=== PATIENT | female | born 1955 | race Caucasian/White ===

== ENCOUNTER → 2016-06-26 | Outpatient (CLI) | payer OTHER ==
[~2016-06-26] MED LIST: ASCO100C2 PO; ASCO500C43 PO; ASPI81TA28 PO; ATOR-24 PO; ATOR-54 PO; CHOL100027 PO; HYDR-3419 PO; MULT-506 PO; OMEGCAP2 PO; OMEP20CA9 PO
[2016-06-26 12:43] LABS: ESTIMATED AVERAGE GLUCOSE 123 mg/dl; HA1C FLAG Normal (Normal)
[2016-06-26 13:04] LABS: ALT/SGPT 38 U/L (12-78); BLOOD UREA NITROGEN 12 mg/dl (7-18); BUN/CREATININE RATIO 13.8 (10-20); CALCIUM 9.2 mg/dl (8.5-10.1); CARBON DIOXIDE 25 mmol/L (21-32); CHLORIDE 106 mmol/L (98-107); CHOLESTEROL 196 mg/dl (0-200); CREATININE 0.87 mg/dl (0.60-1.20); GLUCOSE 109 mg/dl (70-99); SODIUM 140 mmol/L (136-145); TRIGLYCERIDES 146 mg/dl (0-150); VERY LOW DENSITY LIPOPROT CALC 29 mg/dl
[2016-06-26 13:09] LABS: ALKALINE PHOSPHATASE 159 U/L (45-117); AST/SGOT 31 U/L (15-37); CHOLESTEROL/HDL RATIO 3.2; HDL CHOLESTEROL 62 mg/dl; LDL CHOLESTEROL CALCULATED 105 mg/dl
[2016-06-26 19:39] LABS: RATIO 12.4 mcg/mg (0-30.0)
== END | disposition home or self-care (01) ==
LOC: C.LABPVFM 09:04
PROVIDERS: ATTEND Family Medicine
DX: E78.5 Hyperlipidemia, unspecified (principal); R73.01 Impaired fasting glucose; R74.8 Abnormal levels of other serum enzymes; K21.9 Gastro-esophageal reflux disease without esophagitis

== ENCOUNTER → 2016-06-26 | Outpatient (CLI) | payer OTHER | END | disposition home or self-care (01) | LOC: C.PAPS 14:19 | PROVIDERS: ATTEND Nurse Practitioner | DX: Z01.419 Encounter for gynecological examination (general) (routine) without abnormal findings (principal) ==

== ENCOUNTER → 2016-07-05 | Outpatient (CLI) | payer OTHER ==
[2016-07-05 12:58] LABS: BASO % 0.2 %; BASO ABS # 0.01 K/uL (0-0.2); COMPLETE YES; EOS % 1.1 %; HEMATOCRIT 37.6 % (37-47); IG% 0.2 %; LYMPH % 37.8 %; MEAN CELL VOLUME 87.2 fL (80-100); MEAN CORPUSCULAR HEMOGLOBIN 29.7 pg (25-34); MONO % 8.5 %; NEUT % 52.2 %; PLATELET COUNT 117 K/uL (130-400); RED BLOOD COUNT 4.31 M/uL (4.2-5.4); WHITE BLOOD COUNT 6.09 K/uL (4.8-10.8)
[2016-07-05 13:32] LABS: URINE APPEARANCE CLEAR (CLEAR); URINE BILIRUBIN NEG (NEG); URINE COLOR YELLOW; URINE EPITHELIAL CELL AUTO 0-5 /lpf (0-5); URINE NITRITE NEG (NEG); URINE PH 6.5 (4.5-7.5); URINE SPECIFIC GRAVITY 1.005 (1.000-1.030); UROBILINOGEN NEG (NEG)
[2016-07-05 13:39] LABS: ALT/SGPT 39 U/L (12-78); AST/SGOT 28 U/L (15-37); BLOOD UREA NITROGEN 10 mg/dl (7-18); BUN/CREATININE RATIO 12.8 (10-20); CALCIUM 9.5 mg/dl (8.5-10.1); CARBON DIOXIDE 27 mmol/L (21-32); CHLORIDE 105 mmol/L (98-107); GLUCOSE 92 mg/dl (70-99); POTASSIUM 3.9 mmol/L (3.5-5.1); SODIUM 141 mmol/L (136-145)
[2016-07-05 13:41] LABS: ALKALINE PHOSPHATASE 170 U/L (45-117)
[2016-07-05 13:46] LABS: MANUAL MICROSCOPIC REQUIRED? NO; REVIEW REQ? NO
== END | disposition home or self-care (01) ==
LOC: C.LABPVFM 10:45
PROVIDERS: ATTEND Nurse Practitioner Family
DX: R39.9 Unspecified symptoms and signs involving the genitourinary system (principal); R10.11 Right upper quadrant pain

== ENCOUNTER 2016-07-07 07:27 | Emergency (ER) | payer OTHER ==
[~2016-07-07] VITALS: Ht 144.8 cm; Wt 57.8 kg
[~2016-07-07 07:27] MED LIST changes: -ASCO500C43 PO; -ATOR-54 PO; -HYDR-3419 PO
[2016-07-07 07:29] VITALS: TEMP 36.4; Ht 144.8 cm; Wt 57.8 kg
--- NOTE | 2016-07-07 07:57 | EMERGENCY ROOM VISIT NOTE ---
History First contact with patient: 07:39 Chief Complaint: BACK PAIN Stated Complaint: BACK PAINS,SIDE PAINS,STOMACH PAINS,BLOATING History of Present Illness The patient is a 61 year old female who presents to the Emergency Room with complaints of abdominal and back pain, bloating, and loose stools since Thursday. She reports she was feeling well up until Thursday morning, when she woke up and had a central vague abdominal discomfort with left posterior CVA tenderness. She reports this lasted throughout the day and was associated with loose stool as well. She was not on antibiotics prior to this. She tried taking Ibuprofen which did not affect the pain. She had the pain afternoon and also Thursday AM again, both times lasting a few hours with the same characteristics. She did not vomit at any point but since today has felt nauseated and lightheaded, so when she had the pain again this morning she decided to come in for evaluation. She saw her PCP on Thursday who did some labwork and a urinalysis but neither were remarkable. She reports she was concerned about her symptoms being related to her gallbladder, pancreatitis, or ovarian cancer. She currently reports pain in the suprapubic region and upper abdomen, and that the pain in the left CVA region has resolved. Review of Systems See HPI for pertinent positives & negatives. A total of 10 systems reviewed and were otherwise negative. Past Medical/Surgical History Pre-diabetes Family History Cancer Heart disease Hypertension Two sisters had breast cancer, one of which also recently had her gallbladder removed. Mother in old age. Father healthy. Social History Smoking Status: Never Smoker Alcohol Use: none Drug Use: none Marital Status: Housing Status: lives with family Occupation Status: employed Current/Historical Medications Scheduled Ascorbic Acid (Vitamin C 500 mg), 500 MG PO DAILY Aspirin (Aspirin Ec), 81 MG PO DAILY Atorvastatin (Lipitor), 20 MG PO DAILY Cholecalciferol (Vitamin D 1000 Unit), 1,000 INTER.UNIT PO DAILY Multivitamin (Multivitamin), 1 TAB PO DAILY [place]-3 Fatty Acids (Fish Oil), 1 CAP PO DAILY Scheduled PRN Hydrocodon/Acetaminophen 5MG/300MG (Vicodin (5MG/300MG)), 1 TAB PO Q6H PRN for Pain Omeprazole (Prilosec), 20 MG PO BID PRN for Heartburn Allergies Coded Allergies: No Known Allergies (Unverified , 2/27/17) Physical Exam Vital Signs Date Time Temp Pulse Resp B/P Pulse Ox O2 Delivery O2 Flow Rate FiO2 07/07/16 09:30 79 18 131/69 94 Room Air 07/07/16 07:29 36.4 113 18 162/93 98 Room Air Physical Exam GENERAL: Awake, alert, well-appearing, anxious appearing. HENT: Normocephalic, atraumatic. Oropharynx unremarkable. EYES: Normal conjunctiva. Sclera non-icteric. NECK: Supple. No nuchal rigidity. FROM. No JVD. RESPIRATORY: Clear to auscultation. CARDIAC: Regular rate, normal rhythm. Extremities warm and well perfused. Pulses equal. ABDOMEN: Soft, non-distended. Mild tenderness to superficial palpation to upper right quadrant and suprapubic region. No rebound or guarding. No masses. RECTAL: Deferred. MUSCULOSKELETAL: Chest examination reveals no tenderness. The back is symmetrical on inspection without obvious abnormality. There is no CVA tenderness to palpation. No joint edema. LOWER EXTREMITIES: Calves are equal size bilaterally and non-tender. No edema. No discoloration. NEURO: Normal sensorium. No sensory or motor deficits noted. SKIN: No rash or jaundice noted. Medical Decision & Procedures Laboratory Results 07/07/16 07:40 Red Blood Count 4.61, Mean Corpuscular Volume 87.0, Mean Corpuscular Hemoglobin 30.4, Mean Corpuscular Hemoglobin Concent 34.9, Mean Platelet Volume 9.6 07/07/16 07:40 Test 07/07/16 07:35 07/07/16 07:40 Urine Color YELLOW Urine Appearance CLEAR (CLEAR) Urine pH 7.0 (4.5-7.5) Urine Specific [place] 1.000 (1.000-1.030) Urine Protein NEG (NEG) Urine Glucose (UA) NEG (NEG) Urine Ketones NEG (NEG) Urine Occult Blood 2+ (NEG) Urine Nitrite NEG (NEG) Urine Bilirubin NEG (NEG) Urine Urobilinogen NEG (NEG) Urine Leukocyte Esterase NEG (NEG) Urine WBC (Auto) 0 /hpf (0-5) Urine RBC (Auto) 0-4 /hpf (0-4) Urine Hyaline Casts (Auto) 0 /lpf (0-5) Urine Epithelial Cells (Auto) 0-5 /lpf (0-5) Urine Bacteria (Auto) NEG (NEG) White Blood Count 6.37 K/uL (4.8-10.8) Red Blood Count 4.61 M/uL (4.2-5.4) Hemoglobin 14.0 g/dL (12.0-16.0) Hematocrit 40.1 % (37-47) Mean Corpuscular Volume 87.0 fL (80-100) Mean Corpuscular Hemoglobin 30.4 pg (25-34) Mean Corpuscular Hemoglobin Concent 34.9 g/dl (32-36) Platelet Count 234 K/uL (130-400) Mean Platelet Volume 9.6 fL (7.4-10.4) RDW Standard Deviation 44.8 fL (36.4-46.3) RDW Coefficient of Variation 14.2 % (11.5-14.5) Neutrophils % (Manual) 57.7 % Lymphocytes % (Manual) 20.7 % Variant Lymphocytes % (manual) 12.6 % Monocytes % (Manual) 9.0 % Neutrophils # (Manual) 3.68 K/uL (1.4-6.5) Total Absolute Neutrophils 3.68 K/uL (1.4-6.5) Lymphocytes # (Manual) 1.32 K/uL (1.2-3.4) Absolute Variant Lymphocytes 0.80 K/uL Total Absolute Lymphocytes 2.12 K/uL (1.2-3.4) Monocytes # (Manual) 0.57 K/uL (0.11-0.59) Ovalocytes 1+ Anion Gap 7.0 mmol/L (3-11) Est Creatinine Clear Calc Drug Dose 56.7 ml/min Estimated GFR () 96.4 Estimated GFR (Non- 83.2 BUN/Creatinine Ratio 12.4 (10-20) Calcium Level 9.5 mg/dl (8.5-10.1) Total Bilirubin 0.8 mg/dl (0.2-1) Aspartate Amino Transf (AST/SGOT) 36 U/L (15-37) Alanine Aminotransferase (ALT/SGPT) 47 U/L (12-78) Alkaline Phosphatase 198 U/L (45-117) Total Protein 8.5 gm/dl (6.4-8.2) Albumin 4.2 gm/dl (3.4-5.0) Globulin 4.3 gm/dl (2.5-4.0) Albumin/Globulin Ratio 1.0 (0.9-2) Lipase 176 U/L (73-393) Procedure CT ABDOMEN PELVIS CLINICAL HISTORY: Left-sided flank pain. Bloating. COMPARISON STUDY: 03/30/2014 TECHNIQUE: CT scan of the abdomen and pelvis was performed from the lung bases to the proximal femurs. Images are reviewed in the axial, sagittal, and coronal planes. IV contrast was not administered for this examination. CT DOSE: 493.09 mGy.cm FINDINGS: Lower chest: The heart is normal in size and configuration, without pericardial effusion. The lung bases and pleural spaces are clear. Liver: The unenhanced liver is normal in size, contour, and attenuation. There is no intrahepatic biliary ductal dilatation. Gallbladder: Unremarkable. Spleen: Normal in size and attenuation. Pancreas: Unremarkable. Adrenal glands: Unremarkable. Kidneys: The unenhanced kidneys are normal in size without hydronephrosis. There is no contour deforming renal mass lesion. No renal calculi are identified. No ureteral or bladder calculi are visualized. Bowel: There are no transition zones to indicate bowel obstruction. The appendix appears normal. There is no evidence of acute diverticulitis. Peritoneum: There is no intraperitoneal free air or abdominal ascites. Vasculature: The abdominal aorta is normal in course and caliber. Adenopathy: None. Pelvic viscera: The bladder, and pelvic viscera are unremarkable. Skeletal structures: No destructive osseous lesions are seen. Since the prior study, the patient has developed superior endplate compression fractures at the T11 and L1 levels. IMPRESSION: 1. No renal, ureteral, or bladder calculi identified 2. No evidence of bowel obstruction. No evidence of free air 3. Normal appendix. No evidence of acute diverticulitis 4. No abnormal adnexal masses identified 5. Interval development of superior endplate compression fractures at the T11 and L1 levels. ED Course 7:50: I evaluated the patient in room B6. She had a complete history and physical examination performed. 7:57: I ordered a CBC, CMP, Lipase level, Urinalysis with microscopy/culture. 7:58: I reviewed her labwork from her PCP on 07/05. She had a urinalysis that showed 1-30 RBCs, and culture is still pending. Her CBC was unremarkable and CMP unremarkable apart from a Alk Phos of 170. I discussed this with Dr Vargas. We ordered a CT of the abdomen without contrast to evaluate for stone / pelvis pathology. I informed the patient of this as well. 9:20: I reviewed the patients CT scan results with her, and her unremarkable lab work. 9:31: I checked the patient on the [place] PDMP - She last had a script for narcotics 1 year ago. She is not at risk for drug abuse. 9:50: The patient was deemed stable for discharge. She was prescribed [place] for pain and advised to follow up with her PCP. 10:00: She was discharged in good condition. Medical Decision 61 yo female with abdominal pain, nausea, and hematuria - differential includes : renal calculus, pancreatitis, cholecystitis, ovarian pathology, constipation, or dehydration. She had an IV placed and labs drawn. She initially reported feeling nauseated so I ordered Zofran 4mg, then she did not feel nauseated anymore, so this was cancelled. She had a CT completed as above. Her labs were unremarkable, though her ALT had increased from prior. She did not have a kidney stone visualized on CT. She did have occult blood on her urine microscopy which was also unremarkable. She reported her pain had improved but she did not feel like she could cope without any medications at home. She was reviewed in the PDMP and deemed low risk for abuse. She was instructed to take the pain medications as needed but then follow up with her PCP if symptoms did not improve. She was discharged home in good condition. [place] Drug Monitoring Program Search Results: patient reviewed within database, no issues identified, see additional documentation Impression Primary Impression: Abdominal pain Departure Information Condition GOOD Prescriptions Hydrocodon/Acetaminophen 5MG/300MG (VICODIN (5MG/300MG)) 1 Tab Tab 1 TAB PO Q6H Y for Pain, #15 TAB Prov: Leslye Pollock MD 07/07/16 Referrals Abby Jasso, C.R.N.P (PCP) Patient Instructions My [facility] Resident Tracking Resident Involvement: Resident Care Provided Care Provided: Adult ED
[2016-07-07 08:03] LABS: HEMATOCRIT 40.1 % (37-47); MEAN CORPUSCULAR HEMOGLOBIN 30.4 pg (25-34); MEAN CORPUSCULAR HGB CONC 34.9 g/dl (32-36); MEAN PLATELET VOLUME 9.6 fL (7.4-10.4); PLATELET COUNT 234 K/uL (130-400); RED BLOOD COUNT 4.61 M/uL (4.2-5.4); WHITE BLOOD COUNT 6.37 K/uL (4.8-10.8)
[2016-07-07] MEDS ORDERED: ONDANSETRON INJ 2 MG/ML 2 ML VIAL IV STA (08:03)
[2016-07-07 08:13] LABS: URINE APPEARANCE CLEAR (CLEAR); URINE BILIRUBIN NEG (NEG); URINE COLOR YELLOW; URINE EPITHELIAL CELL AUTO 0-5 /lpf (0-5); URINE NITRITE NEG (NEG); UROBILINOGEN NEG (NEG); ZZUR CULT IF INDIC CLEAN CATCH NO
[2016-07-07 08:18] LABS: BUN/CREATININE RATIO 12.4 (10-20); CALCIUM 9.5 mg/dl (8.5-10.1); CREATININE 0.78 mg/dl (0.60-1.20); POTASSIUM 3.6 mmol/L (3.5-5.1)
[2016-07-07 08:23] LABS: MANUAL MICROSCOPIC REQUIRED? NO; REVIEW REQ? NO
[2016-07-07] MEDS ORDERED: ASCO500C43 PO (08:28)
[2016-07-07] MEDS ORDERED: ATOR-54 PO (08:28)
--- NOTE | 2016-07-07 08:44 | DIAGNOSTIC IMAGING REPORT ---
CT SCAN OF THE ABDOMEN AND PELVIS WITHOUT CONTRAST CLINICAL HISTORY: Left-sided flank pain. Bloating. COMPARISON STUDY: 03/30/2014 TECHNIQUE: CT scan of the abdomen and pelvis was performed from the lung bases to the proximal femurs. Images are reviewed in the axial, sagittal, and coronal planes. IV contrast was not administered for this examination. CT DOSE: 493.09 mGy.cm FINDINGS: Lower chest: The heart is normal in size and configuration, without pericardial effusion. The lung bases and pleural spaces are clear. Liver: The unenhanced liver is normal in size, contour, and attenuation. There is no intrahepatic biliary ductal dilatation. Gallbladder: Unremarkable. Spleen: Normal in size and attenuation. Pancreas: Unremarkable. Adrenal glands: Unremarkable. Kidneys: The unenhanced kidneys are normal in size without hydronephrosis. There is no contour deforming renal mass lesion. No renal calculi are identified. No ureteral or bladder calculi are visualized. Bowel: There are no transition zones to indicate bowel obstruction. The appendix appears normal. There is no evidence of acute diverticulitis. Peritoneum: There is no intraperitoneal free air or abdominal ascites. Vasculature: The abdominal aorta is normal in course and caliber. Adenopathy: None. Pelvic viscera: The bladder, and pelvic viscera are unremarkable. Skeletal structures: No destructive osseous lesions are seen. Since the prior study, the patient has developed superior endplate compression fractures at the T11 and L1 levels. IMPRESSION: 1. No renal, ureteral, or bladder calculi identified 2. No evidence of bowel obstruction. No evidence of free air 3. Normal appendix. No evidence of acute diverticulitis 4. No abnormal adnexal masses identified 5. Interval development of superior endplate compression fractures at the T11 and L1 levels. Electronically signed by: Carlos Nagy M.D. 07/07/2016 8:43 AM Dictated Date/Time: 07/07/2016 8:27 AM
[2016-07-07 09:08] LABS: COMPLETE YES; LYMPH ABS # 1.32 K/uL (1.2-3.4); LYMPHOCYTE % 20.7 %; NEUTROPHILS % 57.7 %; OVALOCYTES 1+; VARIANT LYMPHOCYTE % 12.6 %
[2016-07-07 09:30] VITALS: BP 131/69; PULSE 79; O2SAT 94
[2016-07-07] MEDS ORDERED: HYDR-3419 PO (09:53)
--- NOTE | 2016-07-09 15:20 | EMERGENCY ROOM VISIT NOTE ---
ED Visit Note First contact with patient: 07:39 Resident Physician Supervision Note: I interviewed and examined the patient. Discussed with Dr. Pollock and agree with findings and plan as documented in the note. Any exceptions or clarifications are listed here: [None] Diagnosis: flank pain, resolved. Central abdominal pain Documented By: Rosalba Vargas
== END 2016-07-07 10:02 | disposition home or self-care (01) ==
LOC: C.EDB 07:29
DX: R10.9 Unspecified abdominal pain (principal); R31.9 Hematuria, unspecified; R42 Dizziness and giddiness; Z82.49 Family history of ischemic heart disease and other diseases of the circulatory system; Z80.3 Family history of malignant neoplasm of breast; Z79.82 Long term (current) use of aspirin

== ENCOUNTER → 2016-07-29 | Outpatient (CLI) | payer OTHER ==
[~2016-07-29] MED LIST changes: -ASCO100C2 PO; +ASCO500C43 PO; -ATOR-24 PO; +ATOR-54 PO; +HYDR-3419 PO
== END | disposition home or self-care (01) ==
LOC: C.MAMM 15:21
PROVIDERS: ATTEND Nurse Practitioner
DX: S32.009A Unspecified fracture of unspecified lumbar vertebra, initial encounter for closed fracture (principal); X58.XXXA Exposure to other specified factors, initial encounter; M85.88 Other specified disorders of bone density and structure, other site; M85.851 Other specified disorders of bone density and structure, right thigh; M85.852 Other specified disorders of bone density and structure, left thigh

== ENCOUNTER → 2016-07-31 | Outpatient (CLI) | payer OTHER ==
[2016-07-31 17:33] LABS: HEMATOCRIT 37.1 % (37-47); MEAN CELL VOLUME 85.7 fL (80-100); MEAN CORPUSCULAR HEMOGLOBIN 28.6 pg (25-34); MEAN CORPUSCULAR HGB CONC 33.4 g/dl (32-36); MEAN PLATELET VOLUME 11.7 fL (7.4-10.4); PLATELET COUNT 102 K/uL (130-400); RED BLOOD COUNT 4.33 M/uL (4.2-5.4); WHITE BLOOD COUNT 4.46 K/uL (4.8-10.8)
[2016-07-31 17:46] LABS: ALT/SGPT 50 U/L (12-78); BLOOD UREA NITROGEN 12 mg/dl (7-18); BUN/CREATININE RATIO 15.3 (10-20); CARBON DIOXIDE 26 mmol/L (21-32); CHLORIDE 108 mmol/L (98-107); CREATININE 0.78 mg/dl (0.60-1.20); GLUCOSE 91 mg/dl (70-99); POTASSIUM 3.8 mmol/L (3.5-5.1); SODIUM 141 mmol/L (136-145)
[2016-07-31 17:49] LABS: ALKALINE PHOSPHATASE 243 U/L (45-117); AST/SGOT 33 U/L (15-37)
[2016-07-31 18:33] LABS: BASO % 0.4 %; BASO ABS # 0.02 K/uL (0-0.2); COMPLETE YES; EOS % 2.2 %; LYMPH % 56.1 %; MONO % 9.4 %; NEUT % 31.9 %
[2016-08-04 22:19] LABS: ALBUMIN 4.3 G/DL (3.8-4.8); GAMMA GLOBULIN 1.6 G/DL (0.8-1.7); TOTAL PROTEIN 7.3 G/DL (6.2-8.3)
== END | disposition home or self-care (01) ==
LOC: C.LABPVFM 13:53
PROVIDERS: ATTEND Nurse Practitioner
DX: M81.0 Age-related osteoporosis without current pathological fracture (principal); D69.6 Thrombocytopenia, unspecified; R74.8 Abnormal levels of other serum enzymes; S32.009A Unspecified fracture of unspecified lumbar vertebra, initial encounter for closed fracture; X58.XXXA Exposure to other specified factors, initial encounter

== ENCOUNTER → 2016-08-20 | Outpatient (CLI) | payer OTHER ==
--- NOTE | 2016-08-20 14:12 | DIAGNOSTIC IMAGING REPORT ---
KUB HISTORY: ABDOMINAL DISCOMFORT COMPARISON: Abdomen and pelvis CT 07/07/2016. FINDINGS: The bowel gas pattern is unremarkable. There are no dilated loops of small bowel to suggest an obstruction. No renal calculi. No ureteral calculi. Calcifications in the deep pelvis likely represent phleboliths. No pneumoperitoneum or pneumatosis. Stable mild old superior endplate compression deformity at L1. IMPRESSION: Unremarkable bowel gas pattern. No evidence for bowel obstruction. Electronically signed by: Jose Payne M.D. 08/20/2016 2:10 PM Dictated Date/Time: 08/20/2016 2:09 PM
== END | disposition home or self-care (01) ==
LOC: C.LABPVFM 13:14
PROVIDERS: ATTEND Family Medicine
DX: R10.9 Unspecified abdominal pain (principal)

== ENCOUNTER → 2016-08-21 | Outpatient (CLI) | payer OTHER ==
[2016-08-24 13:07] LABS: O&P SOURCE OTHER
== END | disposition home or self-care (01) ==
LOC: C.LABPVFM 12:26
PROVIDERS: ATTEND Family Medicine
DX: R19.7 Diarrhea, unspecified (principal)

== ENCOUNTER → 2016-09-08 | Outpatient (CLI) | payer OTHER ==
--- NOTE | 2016-09-08 11:52 | DIAGNOSTIC IMAGING REPORT ---
THORACIC SPINE 3 VIEWS ROUTINE CLINICAL HISTORY: Low back pain COMPARISON STUDY: CT scan the abdomen pelvis dated 07/07/2016 FINDINGS: The bones are osteopenic. There is a superior endplate L1 compression deformity. Superior endplate compression deformities are also visualized at T12, T11 and T5 levels. There is a mild S-shaped scoliosis. No destructive lesions are visualized on conventional radiographic imaging. The paraspinal line is not significantly displaced. IMPRESSION: Osteopenia. T5, T11, T12, and L1 superior endplate compression fractures. The T12 deformity is new, and the L1 deformity is progressive when compared with a prior CT scan of the abdomen pelvis dated 07/07/2016 Electronically signed by: Carlos Nagy M.D. 09/08/2016 11:51 AM Dictated Date/Time: 09/08/2016 11:48 AM
== END | disposition home or self-care (01) ==
LOC: C.RAD1850 11:06
PROVIDERS: ATTEND Internal Medicine Endocrinology, Diabetes & Metabolism
DX: M54.5 Low back pain (principal)

== ENCOUNTER → 2016-11-06 | Outpatient (CLI) | payer OTHER ==
[2016-11-06 17:46] LABS: BASO % 0.4 %; BASO ABS # 0.02 K/uL (0-0.2); COMPLETE YES; EOS % 1.8 %; HEMATOCRIT 37.9 % (37-47); IG% 0.2 %; LYMPH % 49.4 %; LYMPH ABS # 2.54 K/uL (1.2-3.4); MEAN CELL VOLUME 87.5 fL (80-100); MEAN CORPUSCULAR HEMOGLOBIN 29.3 pg (25-34); MEAN CORPUSCULAR HGB CONC 33.5 g/dl (32-36); MONO % 9.1 %; NEUT % 39.1 %; PLATELET COUNT 130 K/uL (130-400); RED BLOOD COUNT 4.33 M/uL (4.2-5.4); WHITE BLOOD COUNT 5.14 K/uL (4.8-10.8)
[2016-11-06 18:12] LABS: ALT/SGPT 44 U/L (12-78); BLOOD UREA NITROGEN 12 mg/dl (7-18); BUN/CREATININE RATIO 13.1 (10-20); CALCIUM 9.3 mg/dl (8.5-10.1); CARBON DIOXIDE 25 mmol/L (21-32); CHLORIDE 108 mmol/L (98-107); CREATININE 0.94 mg/dl (0.60-1.20); GLUCOSE 92 mg/dl (70-99); POTASSIUM 4.2 mmol/L (3.5-5.1); SODIUM 140 mmol/L (136-145)
[2016-11-06 18:15] LABS: ALB/GLOB RATIO 1.1 (0.9-2); ALKALINE PHOSPHATASE 185 U/L (45-117); AST/SGOT 36 U/L (15-37)
[2016-11-07 06:21] LABS: ESTIMATED AVERAGE GLUCOSE 128 mg/dl; HA1C FLAG Normal (Normal)
== END | disposition home or self-care (01) ==
LOC: C.LABPVFM 13:24
PROVIDERS: ATTEND Family Medicine
DX: D69.6 Thrombocytopenia, unspecified (principal); E11.9 Type 2 diabetes mellitus without complications; R74.8 Abnormal levels of other serum enzymes

== ENCOUNTER → 2016-12-22 | Outpatient (CLI) | payer OTHER ==
--- NOTE | 2016-12-22 10:10 | DIAGNOSTIC IMAGING REPORT ---
ABDOMEN LIMITED (US) HISTORY: Abnormal liver function tests Liver/spleen, elevated LFT. COMPARISON: 06/21/2015 FINDINGS: Pancreas: The pancreas demonstrates a normal echotexture. Liver: Fatty replaced Gallbladder: No gallbladder wall thickening. No gallstones. CBD: 4.5 mm Right kidney: No hydronephrosis. Spleen: Normal IMPRESSION: Fatty infiltration of liver. Otherwise negative study. No change from the prior exam. The above report was generated using voice recognition software. It may contain grammatical, syntax or spelling errors. Electronically signed by: David Dorman M.D. 12/22/2016 10:08 AM Dictated Date/Time: 12/22/2016 10:07 AM
== END | disposition home or self-care (01) ==
LOC: C.ULTR 09:00
PROVIDERS: ATTEND Internal Medicine Hematology & Oncology
DX: D69.6 Thrombocytopenia, unspecified (principal); R79.89 Other specified abnormal findings of blood chemistry

== ENCOUNTER → 2017-02-12 | Outpatient (CLI) | payer OTHER ==
[~2017-02-12] MED LIST changes: -HYDR-3419 PO
[2017-02-12 17:59] LABS: ALT/SGPT 53 U/L (12-78); BLOOD UREA NITROGEN 9 mg/dl (7-18); BUN/CREATININE RATIO 11.3 (10-20); CALCIUM 9.5 mg/dl (8.5-10.1); CARBON DIOXIDE 27 mmol/L (21-32); CHLORIDE 107 mmol/L (98-107); CREATININE 0.77 mg/dl (0.60-1.20); GLUCOSE 98 mg/dl (70-99); POTASSIUM 4.1 mmol/L (3.5-5.1); SODIUM 140 mmol/L (136-145)
[2017-02-12 18:10] LABS: ALB/GLOB RATIO 0.9 (0.9-2); ALKALINE PHOSPHATASE 222 U/L (45-117); AST/SGOT 43 U/L (15-37); THYROID STIMULATING HORMONE 0.779 uIu/ml (0.300-4.500)
== END | disposition home or self-care (01) ==
LOC: C.LABPVFM 13:30
PROVIDERS: ATTEND Nurse Practitioner
DX: E11.9 Type 2 diabetes mellitus without complications (principal); R74.8 Abnormal levels of other serum enzymes; R63.4 Abnormal weight loss

== ENCOUNTER → 2017-04-09 | Outpatient (CLI) | payer OTHER ==
--- NOTE | 2017-04-09 14:35 | MAMMOGRAPHY REPORT ---
BILATERAL DIGITAL SCREENING MAMMOGRAM TOMOSYNTHESIS WITH CAD: 04/09/2017 CLINICAL HISTORY: Routine screening. Patient has no complaints. TECHNIQUE: Breast tomosynthesis in addition to standard 2D mammography was performed. Current study was also evaluated with a Computer Aided Detection (CAD) system. COMPARISON: Comparison is made to exams dated: 03/27/2016 mammogram, 03/20/2015 mammogram, 4 mammogram, 11/10/2013 ultrasound, 11/10/2013 mammogram, and 02/22/2013 mammogram - [facility]. BREAST COMPOSITION: The tissue of both breasts is extremely dense, which lowers the sensitivity of m ammography. FINDINGS: No suspicious masses, calcifications, or areas of architectural distortion are noted in ei ther breast. There has been no significant interval change compared to prior exams. IMPRESSION: ACR BI-RADS CATEGORY 1: NEGATIVE There is no mammographic evidence of malignancy. A 1 year screening mammogram is recommended. The pa tient will receive written notification of the results. Approximately 10% of breast cancers are not detected with mammography. A negative mammographic report should not delay biopsy if a clinically suggestive mass is present. Kathryn Valenzuela M.D. /:04/09/2017 09:39:33 Yard Brakeman: Apolonia JARAMILLO(Bree)(Doroteo), [facility] letter sent: Normal 1/2 BI-RADS Code: ACR BI-RADS Category 1: Negative
== END | disposition home or self-care (01) ==
LOC: C.MAMM 08:32
PROVIDERS: ATTEND Family Medicine
DX: Z12.31 Encounter for screening mammogram for malignant neoplasm of breast (principal)

== ENCOUNTER → 2017-09-03 | Outpatient (CLI) | payer OTHER ==
[2017-09-03 13:33] LABS: HEMATOCRIT 37.8 % (37-47); MEAN CELL VOLUME 86.1 fL (80-100); MEAN CORPUSCULAR HEMOGLOBIN 29.6 pg (25-34); MEAN CORPUSCULAR HGB CONC 34.4 g/dl (32-36); RED CELL DISTRIBUTION WIDTH CV 13.8 % (11.5-14.5); RED CELL DISTRIBUTION WIDTH SD 43.5 fL (36.4-46.3); WHITE BLOOD COUNT 3.93 K/uL (4.8-10.8)
[2017-09-03 13:35] LABS: BASO % 0.8 %; BASO ABS # 0.03 K/uL (0-0.2); EOS % 1.8 %; EOS ABS # 0.07 K/uL (0-0.5); IG# 0.03 K/uL (0.00-0.02); LYMPH % 42.7 %; LYMPH ABS # 1.68 K/uL (1.2-3.4); MONO % 9.7 %; MONO ABS # 0.38 K/uL (0.11-0.59); NEUT % 44.2 %; NEUT ABS # 1.74 K/uL (1.4-6.5)
[2017-09-03 13:59] LABS: HEMOGLOBIN A1C 6.1 % (4.5-5.6)
[2017-09-03 14:19] LABS: ALBUMIN 3.9 gm/dl (3.4-5.0); ALT/SGPT 35 U/L (12-78); AST/SGOT 31 U/L (15-37); BLOOD UREA NITROGEN 13 mg/dl (7-18); CALCIUM 8.8 mg/dl (8.5-10.1); CARBON DIOXIDE 27 mmol/L (21-32); CHOLESTEROL 183 mg/dl (0-200); CREATININE 0.87 mg/dl (0.60-1.20); GLUCOSE 106 mg/dl (70-99); SODIUM 141 mmol/L (136-145)
[2017-09-03 14:23] LABS: ALKALINE PHOSPHATASE 127 U/L (45-117); LDL CHOLESTEROL CALCULATED 99 mg/dl; TOTAL PROTEIN 7.7 gm/dl (6.4-8.2)
== END | disposition home or self-care (01) ==
LOC: C.LABPVFM 09:39
PROVIDERS: ATTEND Nurse Practitioner
DX: E11.9 Type 2 diabetes mellitus without complications (principal); R74.8 Abnormal levels of other serum enzymes; K76.0 Fatty (change of) liver, not elsewhere classified; E78.00 Pure hypercholesterolemia, unspecified; M81.0 Age-related osteoporosis without current pathological fracture; D69.6 Thrombocytopenia, unspecified

== ENCOUNTER 2023-11-20 19:35 | Inpatient (IN) ==
--- NOTE | 2023-11-20 19:55 | Emergency Department Note ---
Impression & Plan Closed fracture of right hip requiring operative repair, Fall ED Provider Note Provider: Go Lozano MD DATE OF SERVICE: 11/20/2023 CHIEF COMPLAINT: Fall, right hip pain HISTORY OF PRESENT ILLNESS: Patient is a 68-year-old female history of type 2 diabetes, neuropathy, and hypertension presenting here today after a fall via ambulance. Patient states she was at home and walking and accidentally stepped onto a Food lid that was on the ground and slid back and fell onto the ground. Denies striking her head or losing consciousness. Denies injury to the upper extremities neck back chest or abdomen. Significant pain in the right hip region unable to walk since this occurred. Denies significant pain in the right knee or leg or to the left leg. No history of injury to the right hip in the past. Received some fentanyl for EMS and did vomit due to pain prior to arrival but this has improved. PAST MEDICAL HISTORY: As noted above MEDICATIONS: Reviewed home medication list no anticoagulation reported SOCIAL HISTORY: Former smoker PHYSICAL EXAM: GENERAL: alert and oriented resting on stretcher appears somewhat uncomfortable Head: normocephalic and atraumatic EYES: No injection, discharge or icterus. EOMI. NECK: Trachea midline. Supple. ENT: Mucous membranes pink and moist. LUNGS: Airway patent. No retractions. Breath sounds clear with good air entry bilaterally. HEART: Regular rate and rhythm. No chest wall tenderness ABDOMEN: Soft and non-tender, without guarding or rebound. Stable pelvis. SKIN: Acyanotic, warm, dry, without rashes EXTREMITIES: Without swelling, tenderness or deformity except for pain localized around the right hip with some lateral swelling and deformity. No open wounds appreciable. No significant tenderness of the right knee lower leg or ankle/foot. NEUROLOGICAL: No aphasia. No facial droop or slurred speech. Sensation to gross touch normal. Limited movement of the right hip secondary to pain but other extremities moving well. EK bpm normal sinus rhythm. No PVC or PAC. No acute ST segment elevation or depression with QTc 46. CONTINUOUS CARDIAC MONITORING: was ordered and showed a heart rate of 70s to 90s bpm in normal sinus rhythm GCS 15. Patient's laboratory studies and imaging reviewed. Differential includes Fracture, dislocation, contusion, intra-abdominal, pneumothorax, intrathoracic, intracranial, neurologic, compartment syndrome, rhabdomyolysis, as well as other pathologies. IMPRESSION/MEDICAL DECISION MAKING: Patient hypoxic. Not on her skin coagulants or antiplatelet agents. Pain localized around the right hip with some lateral swelling and slight shortening. Question possible fracture or dislocation. Denies LOC or striking her head and no believe any head or neck imaging at this time. Next criteria negative. No injury notable in the other extremities. No clinical evidence of compartment syndrome noted. Benign abdomen on exam doubt acute intra-abdominal bleeding. Given fentanyl for pain as well as some Zofran here. X-rays obtained of the right hip and pelvis. Blood work without significant leukocytosis or thrombocytopenia with minimal anemia of 11.4. Normal electrolytes. Negative urinalysis. X-ray shows right hip fracture with a little bit of nonacute stress fracture of the femur. Discussed with Dr. Mackey of orthopedics. Neurovascular intact without findings of compartment syndrome. Multiple is of fentanyl, morphine, and IV Tylenol for some pain control. He will plan to fix her tomorrow and patient and family updated at bedside. Hospitalist contacted for admission. DIAGNOSIS: Fall, right hip fracture DISPOSITION: Hospitalist will evaluate Patient was agreeable with this plan. Past Med/Surg History Problem List (Updated 11/20/23 @ 22:03 by Go Lozano M.D.) Fall (Acute) Closed fracture of right hip requiring operative repair (Acute) Exposure to influenza Enlarged lymph nodes in armpit Pain in right axilla Stricture of sigmoid colon Diverticulosis Anemia Insomnia (Chronic) Neuropathic pain of both legs (Chronic) Type 2 diabetes mellitus (Chronic) Osteoporosis (Chronic) Hypertension (Chronic) Anxiety (Chronic) Vertigo (Acute) Dyslipidemia (Chronic) Acid reflux (Acute) Change in bowel habits Chronic diarrhea Medical History Osteoporosis Belching GERD (gastroesophageal reflux disease) DM type 2 (diabetes mellitus, type 2) Anxiety Glaucoma HLD (hyperlipidemia) HTN (hypertension) Dog bite Fatty infiltration of liver Surgical History History of esophagogastroduodenoscopy (EGD) History of colonoscopy History of tubal ligation Family History Sister Cardiac disorder Kidney stones Breast cancer Hx of CABG Sister Diabetes Myocardial infarction Mother Myocardial infarction Father Myocardial infarction Other Coronary heart disease Family history non-contributory No family history of adverse response to anesthesia Denies family history of Ovarian cancer Prostate cancer Colorectal cancer Social History Smoking Status: Former smoker Second Hand Exposure: No; Do You Dip or Chew Tobacco: No; Hx Alcohol Use: No Hx Substance Use: No Preferred Language: Vietnamese Communication Ability: Effective Hearing Ability: Hard of Hearing 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 Beliefs That Will Affect Care: None marital status: Current Living Situation: Spouse current occupational status: employed current occupation: self employeed How many Children do You have: 3 Feels Safe at Home: Yes Childhood Exposure to Second-Hand Smoke: No Diet: regular caffeine: Yes during the past year weight has: remained stable Dental Care, Regularly: No Physical Activity Frequency: Daily Seatbelt Use: always Sunscreen Use: Yes Assistive Devices: Denture - Upper, Denture - Lower and Glasses Allergies Allergies Allergy/AdvReac Type Severity Reaction Status Date / Time lisinopril AdvReac Intermediate Cough Verified 11/20/23 21:00 Home Meds Home Medications Medication Instructions Recorded Confirmed ascorbic acid (vitamin C) 500 mg 500 mg PO QAM 01/04/19 11/20/23 chewable tablet cholecalciferol (vitamin D3) 25 1,000 units PO QAM 01/04/19 11/20/23 mcg (1,000 unit) capsule omega-3 fatty acids 500 mg capsule 500 mg PO QAM 04/08/21 11/20/23 ibfcluvilbdu-Di-ztvj-minerals 27 1 tab PO DAILY 11/20/23 11/20/23 mg-0.4 mg tablet trazodone 50 mg tablet 25 mg PO HS PRN insomnia 11/20/23 11/20/23 Previous Rx's Medication Instructions Recorded blood sugar diagnostic (OneTouch #300 ea 02/22/19 Ultra Blue Test Strip) lancets 33 gauge (OneTouch Delica #300 ea 02/22/19 Lancets) meclizine 25 mg tablet 25 mg PO BID PRN dizziness #20 tabs 07/11/22 losartan 50 mg tablet 50 mg PO DAILY #30 tabs 03/30/23 rosuvastatin 10 mg tablet 10 mg PO DAILY #90 tabs 04/09/23 escitalopram oxalate 10 mg tablet 10 mg PO QAM #90 tabs 06/19/23 denosumab 60 mg/mL subcutaneous 60 mg subcut .COMPLEX #1 mL 11/02/23 syringe (Prolia) metformin 500 mg tablet,extended 500 mg PO QDL #90 tabs 11/03/23 release 24 hr Results & Data (ED) Vital Signs Vital Signs - 24 hr 11/20/23 19:42 11/20/23 22:59 Temperature 36.8 C Temperature Source Oral Pulse Rate 80 Pulse Rate [Finger] 74 Respiratory Rate 20 18 Respiratory Depth Normal Blood Pressure 155/77 H Blood Pressure [Right Arm] 99/76 L Blood Pressure Mean 103 Blood Pressure Mean [Right Arm] 83 Pulse Oximetry 98 91 Oxygen Delivery Method Room Air Sepsis Recent Fever Within 48 Hours No Sepsis New/Unexplained Change in Mental Status No Sepsis Action Taken by Nursing No Action Required Laboratory Data 11/20/23 Unknown 11/20/23 Unknown Lab Results 11/20/23 11/20/23 Range/Units 20:50 Unknown WBC 8.77 (4.8-10.8) K/ul RBC 3.99 L (4.20-5.40) M/uL Hgb 11.4 L (12.0-16.0) g/dl Hct 33.9 L (37.0-47.0) % MCV 85.0 (80.0-100.0) fL MCH 28.6 (25.0-34.0) pg MCHC 33.6 (32.0-36.0) g/dL RDW Std Deviation 44.3 (36.4-46.3) fL RDW Coeff of Faby 14.3 (11.5-14.5) % Plt Count 266 (130-400) K/uL MPV 10.2 (9.4-12.4) fL Immature Gran % (Auto) 0.3 % Neut % (Auto) 63.8 % Lymph % (Auto) 26.3 % Holmes % (Auto) 8.0 % Eos % (Auto) 1.3 % Baso % (Auto) 0.3 % Neut # (Auto) 5.59 (1.40-6.50) K/uL Lymph # (Auto) 2.31 (1.20-3.40) K/uL Holmes # (Auto) 0.70 H (0.11-0.59) K/uL Eos # (Auto) 0.11 (0.00-0.50) K/uL Baso # (Auto) 0.03 (0.00-0.20) K/uL Immature Gran # (Auto) 0.03 (0.01-0.20) K/uL PT 10.5 (9.0-12.0) Seconds INR 1.0 (0.9-1.1) APTT 24 (21-31) Seconds PTT Ratio 0.9 Sodium 136 (136-145) mmol/L Potassium 3.5 (3.5-5.1) mmol/L Chloride 106 (98-107) mmol/L Carbon Dioxide 22 (21-32) mmol/L Anion Gap 8 (3-11) BUN 15 (6-23) mg/dl Creatinine 0.88 (0.6-1.2) mg/dl Est Cr Clr Drug Dosing 45.6 ml/min Est GFR ( Amer) 79.4 ml/min Est GFR (Non-Af Amer) 68.5 ml/min BUN/Creatinine Ratio 17.0 (10-20) Glucose 116 H (70-99(Fasting)) mg/dl Calcium 9.2 (8.6-10.3) mg/dl Total Bilirubin 0.6 (0.2-1.0) mg/dl AST 27 (13-39) U/L ALT 16 (7-52) U/L Alkaline Phosphatase 96 (34-104) U/L Total Protein 7.4 (6.0-8.3) gm/dl Albumin 4.1 (3.4-5.0) gm/dl Globulin 3.3 (2.5-4.0) gm/dl Albumin/Globulin Ratio 1.2 (0.9-2) Urine Color Yellow Urine Appearance Cloudy A (Clear) Urine pH 8.0 H (4.5-7.5) Ur Specific [place] 1.017 (1.000-1.030) Urine Protein Negative (Negative) Urine Glucose (UA) Negative (Negative) Urine Ketones Trace H (Negative) Urine Blood 1+ H (Negative) Urine Nitrite Negative (Negative) Urine Bilirubin Negative (Negative) Urine Urobilinogen Negative (Negative) Ur Leukocyte Esterase Negative (Negative) Urine WBC (Auto) 0-5 (0-5) /hpf Urine RBC (Auto) 11-20 H (0-2) /hpf U Hyaline Cast (Auto) 0-2 (0-2) /lpf U Epithel Cells (Auto) 0-2 (0-2) /hpf Urine Bacteria (Auto) None Seen (None Seen) Administered Medications Discontinued Medications Fentanyl Citrate (Fentanyl Citrate Pf 100 Mcg/2 Ml Vial) 50 mcg IV NOW STA Stop: 11/20/23 19:51 Last Admin: 11/20/23 20:08 Dose: 50 mcg Documented By: BASHIR Fentanyl Citrate (Fentanyl Citrate Pf 100 Mcg/2 Ml Vial) 100 mcg IV NOW STA Stop: 11/20/23 20:28 Last Admin: 11/20/23 20:32 Dose: 100 mcg Documented By: BASHIR Acetaminophen (Ofirmev) 1,000 mg in 100 mls @ 400 mls/hr IV NOW STA Stop: 11/20/23 21:35 Last Infusion: 11/20/23 22:08 Dose: Infused Documented By: Admin: 11/20/23 21:28 Dose: 400 mls/hr Documented By: BASHIR Morphine Sulfate (Morphine Sulfate 4 Mg/Ml 1 Ml Carp\Vial) 4 mg IV NOW STA Stop: 11/20/23 21:21 Last Admin: 11/20/23 21:28 Dose: 4 mg Documented By: BASHIR Ondansetron HCl (Ondansetron Inj 2 Mg/Ml 2 Ml Vial) 4 mg IV NOW STA Stop: 11/20/23 19:54 Last Admin: 11/20/23 20:08 Dose: 4 mg Documented By: BASHIR Imaging Data Radiologist's Impression: Pelvis X-Ray 11/20/23 19:49 SINGLE VIEW PELVIS; 2 VIEWS RIGHT HIP CLINICAL HISTORY: Fall. Right leg injury. FINDINGS: An AP view of the pelvis with AP and crosstable lateral views of the right hip are correlated with pelvic CT dated 10/25/2020. The skeletal structures are osteopenic. There is an angulated and comminuted fracture of the intertrochanteric/subtrochanteric right femur. Overlying soft tissue edema is noted. There are medially displaced fragments of the lesser trochanter. No additional acute fracture is seen involving the left hip or the bony pelvis. There is cortical thickening and lucency involving the lateral cortex of the proximal right femoral shaft, likely representing a stress reaction/developing insufficiency fracture. Moderate arthritic change and joint space narrowing is seen in the hips. The sacroiliac joints appear maintained. IMPRESSION: 1. Acute angulated fracture of the intertrochanteric/subtrochanteric right proximal femur as above. 2. No additional acute fracture seen involving the left hip or the bony pelvis. 3. Suspect stress reaction/developing insufficiency fracture of the proximal right femoral shaft. This does not appear to be acute. Electronically signed by: Miguel Herrera M.D. 11/20/2023 9:25 PM Femur X-Ray 11/20/23 21:06 RIGHT FEMUR 2 VIEWS CLINICAL HISTORY: Fall. Right leg injury. FINDINGS: AP and crosstable lateral views of the right femur are correlated with radiographs of the right hip performed earlier the same day 11/20/2023. The skeletal structures are osteopenic. There is an angulated and comminuted fracture of the intertrochanteric/subtrochanteric right femur. Overlying soft tissue edema is noted. There are medially displaced fragments of the lesser trochanter. The visualized right hemipelvis appears intact. There is cortical thickening and lucency involving the lateral cortex of the proximal right femoral shaft, likely representing a stress reaction/developing insufficiency fracture. Mild arthritic change and joint space narrowing is seen in the right hip. The right knee joint is grossly maintained. The right sacral iliac joint appears normal. IMPRESSION: 1. Acute angulated fracture of the intertrochanteric/subtrochanteric right proximal femur as above. 2. Stress reaction/developing insufficiency fracture of the proximal right femoral shaft. This does not appear to be acute. Electronically signed by: Miguel Herrera M.D. 11/20/2023 9:30 PM Discharge Plan Visit Data Chief Complaint: Hip Pain Stated Complaint: FALL, HIP PAIN. LEG PAIN ED Provider: Go Lozano Discharge Problem: Closed fracture of right hip requiring operative repair, Fall Patient Disposition: Being Evaluated by Hospitalist Forms Stand Alone Forms: My [employer] Prescriptions Prescriptions: No Action (DME) OneTouch Ultra Blue Test Strip strip See Dose Instructions .ROUTE .MEDSUPPLY Qty: 300 1RF Dose Instruction: As directed Rx Instructions: TEST 3 TIMES PER DAY (DME) lancets [OneTouch Delica Lancets] 33 gauge misc See Dose Instructions .ROUTE .MEDSUPPLY Qty: 300 1RF Dose Instruction: As directed Rx Instructions: TESTING 3 TIMES PER DAY losartan 50 mg tablet 50 mg PO DAILY Qty: 30 8RF rosuvastatin 10 mg tablet 10 mg PO DAILY Qty: 90 3RF escitalopram oxalate 10 mg tablet 10 mg PO QAM Qty: 90 3RF Rx Instructions: Per pharmacy, insurance requires 90 day supplies Prolia 60 mg/mL syringe 60 mg subcut .COMPLEX Qty: 1 1RF Rx Instructions: 60 mg subcutaneously every 6 mo; D/C fosamax metformin 500 mg tablet extended release 24 hr 500 mg PO QDL Qty: 90 3RF ascorbic acid (vitamin C) 500 mg tablet,chewable 500 mg PO QAM cholecalciferol (vitamin D3) 1,000 unit capsule 1,000 units PO QAM meclizine 25 mg tablet 25 mg PO BID PRN (Reason: dizziness) Qty: 20 0RF omega-3 fatty acids 500 mg Capsule 500 mg PO QAM Women's One Daily 27-0.4 mg Tablet 1 tab PO DAILY trazodone 50 mg tablet 25 mg PO HS PRN (Reason: insomnia) Referrals Referrals: Abby Jasso CRNP [Primary Care Provider] - Discharge Problem: Closed fracture of right hip requiring operative repair Qualifiers: Encounter type: initial encounter Qualified Code(s): S72.001A - Fracture of unspecified part of neck of right femur, initial encounter for closed fracture Fall Qualifiers: Encounter type: initial encounter Qualified Code(s): W19.XXXA - Unspecified fall, initial encounter
[2023-11-20] MEDS: fentaNYL citrate PF 100 MCG/2 ML VIAL IV STA ×2 (20:08→20:32)
[2023-11-20] MEDS: ONDANSETRON INJ 2 MG/ML 2 ML VIAL IV STA (20:08)
[2023-11-20 20:35] LABS: Basophils # (auto) 0.03 K/uL (0.00-0.20); Basophils % (auto) 0.3 %; Eosinophils # (auto) 0.11 K/uL (0.00-0.50); Eosinophils % (auto) 1.3 %; Hematocrit (blood only) 33.9 % (37.0-47.0); Hemoglobin 11.4 g/dl (12.0-16.0); Immature Granulocytes # (auto) 0.03 K/uL (0.01-0.20); Immature Granulocytes % (auto) 0.3 %; Lymphocytes # (auto) 2.31 K/uL (1.20-3.40); Lymphocytes % (auto) 26.3 %; Mean Corpuscular Hemoglobin 28.6 pg (25.0-34.0); Mean Corpuscular Hgb Conc 33.6 g/dL (32.0-36.0); Mean Platelet Volume 10.2 fL (9.4-12.4); Neutrophils # (auto) 5.59 K/uL (1.40-6.50); Neutrophils % (auto) 63.8 %; Platelet Count 266 K/uL (130-400); RDW Coefficient of Variation 14.3 % (11.5-14.5); RDW Standard Deviation 44.3 fL (36.4-46.3); Red Blood Count 3.99 M/uL (4.20-5.40); White Blood Count 8.77 K/ul (4.8-10.8)
[2023-11-20 20:54] LABS: Albumin Globulin Ratio 1.2 (0.9-2); Albumin Level 4.1 gm/dl (3.4-5.0); Bilirubin,Total 0.6 mg/dl (0.2-1.0); Calcium 9.2 mg/dl (8.6-10.3); Creatinine Clr Calc Pharmacy 45.6 ml/min; Est GFR (African American) 79.4 ml/min; Est GFR (Non-African American) 68.5 ml/min; Globulin 3.3 gm/dl (2.5-4.0); Potassium 3.5 mmol/L (3.5-5.1); Total Protein 7.4 gm/dl (6.0-8.3)
[2023-11-20 21:20] LABS: Appearance Urine Cloudy (Clear); Bacteria Urine Automated None Seen (None Seen); Bilirubin Urine Negative (Negative); Blood Urine 1+ (Negative); Cast Urine Automated 0-2 /lpf (0-2); Color Urine Yellow; Epithelial Cell Urine Auto 0-2 /hpf (0-2); Glucose Urine UA Negative (Negative); Ketones Urine Trace (Negative); Leukocyte Esterase Urine Negative (Negative); Nitrite Urine Negative (Negative); Protein Urine Negative (Negative); Specific Gravity Urine 1.017 (1.000-1.030); Urobilinogen Urine Negative (Negative); WBC Urine Automated 0-5 /hpf (0-5)
[2023-11-20 21:23] LABS: Partial Thromboplastin Ratio 0.9; Partial Thromboplastin Time 24 Seconds (21-31); Prothrombin Time 10.5 Seconds (9.0-12.0)
[2023-11-20] MEDS: ACETAMINOPHEN 1,000 MG/100 ML VIAL IV STA (21:28)
[2023-11-20] MEDS: MoRPHine SULFATE 4 MG/ML 1 ML CARP\\VIAL IV STA (21:28)
--- NOTE | 2023-11-20 21:28 | XRay Report ---
SINGLE VIEW PELVIS; 2 VIEWS RIGHT HIP CLINICAL HISTORY: Fall. Right leg injury. FINDINGS: An AP view of the pelvis with AP and crosstable lateral views of the right hip are correlat ed with pelvic CT dated 10/25/2020. The skeletal structures are osteopenic. There is an angulated and comminuted fracture of the intertrochanteric/subtrochanteric right femur. Overlying soft tissue edema is noted. There are medially displaced fragments of the lesser trochanter. No additional acute fract ure is seen involving the left hip or the bony pelvis. There is cortical thickening and lucency invol ving the lateral cortex of the proximal right femoral shaft, likely representing a stress reaction/de veloping insufficiency fracture. Moderate arthritic change and joint space narrowing is seen in the h ips. The sacroiliac joints appear maintained. IMPRESSION: 1. Acute angulated fracture of the intertrochanteric/subtrochanteric right proximal femur as above. 2. No additional acute fracture seen involving the left hip or the bony pelvis. 3. Suspect stress reaction/developing insufficiency fracture of the proximal right femoral shaft. Thi s does not appear to be acute. Electronically signed by: Miguel Herrera M.D. 11/20/2023 9:25 PM
--- NOTE | 2023-11-20 21:33 | XRay Report ---
RIGHT FEMUR 2 VIEWS CLINICAL HISTORY: Fall. Right leg injury. FINDINGS: AP and crosstable lateral views of the right femur are correlated with radiographs of the r ight hip performed earlier the same day 11/20/2023. The skeletal structures are osteopenic. There is a n angulated and comminuted fracture of the intertrochanteric/subtrochanteric right femur. Overlying s oft tissue edema is noted. There are medially displaced fragments of the lesser trochanter. The visua lized right hemipelvis appears intact. There is cortical thickening and lucency involving the lateral cortex of the proximal right femoral shaft, likely representing a stress reaction/developing insuffi ciency fracture. Mild arthritic change and joint space narrowing is seen in the right hip. The right knee joint is grossly maintained. The right sacral iliac joint appears normal. IMPRESSION: 1. Acute angulated fracture of the intertrochanteric/subtrochanteric right proximal femur as above. 2. Stress reaction/developing insufficiency fracture of the proximal right femoral shaft. This does n ot appear to be acute. Electronically signed by: Miguel Herrera M.D. 11/20/2023 9:30 PM
--- NOTE | 2023-11-20 22:45 | History & Physical Report ---
Date of Service November 20, 2023 Assessment & Plan (1) Closed fracture of right hip requiring operative repair: (2) Insomnia: (3) Fall: (4) Osteoporosis: (5) Hypertension: (6) Anxiety: (7) Dyslipidemia: Plan Patient is a 68 yo F w/ a PMHx of T2DM, diabetic neuropathy, HTN, HLD, osteoporosis, anxiety, insomnia, Hx of diverticulosis, acid reflux, chronic diarrhea, who presented to the [facility] after slipping on the lid of a cat food can and subsequently falling on her right hip around 5:30 pm this evening. 1) Right hip fracture - Pelvis X-ray and Right femur X-ray done, confirmed hip fracture - NPO at midnight, Consult to Orthopedic Surgery placed - RCRI Score 0-Class I risk - Morphine sulfate, IV, 2 mg, q4hrs (pain 1-5)/morphine sulfate, IV, 4 mg, q4hrs (pain 6-10) - Miralax, 17 g, PO, daily, PRN 2) HTN - hold losartan until post-surgery 3) HLD - continue rosuvastatin, hold omega-3 fatty acids 4) Insomnia/ Anxiety - continue trazodone, continue escitalopram 5) T2DM/ Diabetic neuropathy - SSI, CF, 50 Code status: Full code Disposition: Med-Surg Tele DVT Prophylaxis: SCDs (consider changing after surgery) FENGI: NPO before surgery History of Present Illness Primary Care Provider: JUN Castillo Patient is a 68 yo F w/ a PMHx of T2DM, diabetic neuropathy, HTN, osteopenia who presented to the [facility] ED after slipping on the lid of a cat food can and subsequently falling on her right hip around 5:30 pm this evening. Patient denies hitting her head during the fall or hitting another part of her body. Patient also denies any pain of her body besides the r. thigh/hip area which is only a 1/10 pain. Patient is unable to move her right leg with the exception of wiggling her r. foot and toes. Patient has not been incontinent since the fall and is able to feel sensation in her perineal area. Allergies Allergy/AdvReac Type Severity Reaction Status Date / Time lisinopril AdvReac Intermediate Cough Verified 11/20/23 21:00 Home Medications Medication Instructions Recorded Confirmed Type ascorbic acid (vitamin C) 500 mg 500 mg PO QAM 01/04/19 11/20/23 History chewable tablet cholecalciferol (vitamin D3) 25 1,000 units PO QAM 01/04/19 11/20/23 History mcg (1,000 unit) capsule blood sugar diagnostic (ConturTouch #300 ea 02/22/19 11/05/23 Rx Ultra Blue Test Strip) lancets 33 gauge (ConturTouch Delica #300 ea 02/22/19 11/05/23 Rx Lancets) omega-3 fatty acids 500 mg capsule 500 mg PO QAM 04/08/21 11/20/23 History meclizine 25 mg tablet 25 mg PO BID PRN dizziness #20 tabs 07/11/22 11/20/23 Rx losartan 50 mg tablet 50 mg PO DAILY #30 tabs 03/30/23 11/20/23 Rx rosuvastatin 10 mg tablet 10 mg PO DAILY #90 tabs 04/09/23 11/20/23 Rx escitalopram oxalate 10 mg tablet 10 mg PO QAM #90 tabs 06/19/23 11/20/23 Rx denosumab 60 mg/mL subcutaneous 60 mg subcut .COMPLEX #1 mL 11/02/23 11/20/23 Rx syringe (Prolia) metformin 500 mg tablet,extended 500 mg PO QDL #90 tabs 11/03/23 11/20/23 Rx release 24 hr dsihsmxaiyka-Ai-ersf-minerals 27 1 tab PO DAILY 11/20/23 11/20/23 History mg-0.4 mg tablet trazodone 50 mg tablet 25 mg PO HS PRN insomnia 11/20/23 11/20/23 History Past Med/Surg History Problem List Fall (Acute) Closed fracture of right hip requiring operative repair (Acute) Exposure to influenza Enlarged lymph nodes in armpit Pain in right axilla Stricture of sigmoid colon Diverticulosis Anemia Insomnia (Chronic) Neuropathic pain of both legs (Chronic) Type 2 diabetes mellitus (Chronic) Osteoporosis (Chronic) Hypertension (Chronic) Anxiety (Chronic) Vertigo (Acute) Dyslipidemia (Chronic) Acid reflux (Acute) Change in bowel habits Chronic diarrhea Medical History Osteoporosis Belching GERD (gastroesophageal reflux disease) DM type 2 (diabetes mellitus, type 2) Anxiety Glaucoma HLD (hyperlipidemia) HTN (hypertension) Dog bite Fatty infiltration of liver Surgical History History of esophagogastroduodenoscopy (EGD) History of colonoscopy History of tubal ligation Family History Sister Cardiac disorder Kidney stones Breast cancer Hx of CABG Sister Diabetes Myocardial infarction Mother Myocardial infarction Father Myocardial infarction Other Coronary heart disease Family history non-contributory No family history of adverse response to anesthesia Denies family history of Ovarian cancer Prostate cancer Colorectal cancer Social History Smoking Status: Former smoker Second Hand Exposure: No; Do You Dip or Chew Tobacco: No; Hx Alcohol Use: No Hx Substance Use: No Preferred Language: Argentine Communication Ability: Effective Hearing Ability: Hard of Hearing Presser Hand Required: No Beliefs That Will Affect Care: Adventism Adventism Beliefs: patient would like a lime vat tender to visit while hospitalized marital status: Current Living Situation: Spouse current occupational status: employed current occupation: self employeed How many Children do You have: 3 Other Information That Helps Us Care for You: No Feels Safe at Home: Yes Safety Concerns: Feels Safe At This Time Childhood Exposure to Second-Hand Smoke: No Diet: regular caffeine: Yes during the past year weight has: remained stable Dental Care, Regularly: No Physical Activity Frequency: Daily Seatbelt Use: always Sunscreen Use: Yes Assistive Devices: None Review of Systems Constitutional: no fever, no chills, no fatigue and no weakness Respiratory: no cough, no chest congestion and no dyspnea Cardiovascular: no chest pain and no palpitations Gastrointestinal: no abdominal pain, no nausea, no vomiting, no constipation, no diarrhea/loose stools and no fecal incontinence Genitourinary: patient w/ Cruz catheter Musculoskeletal: + joint pain (r. hip pain, mild, 1/10 se verity) Neurologic: + paralysis (unable to move r. leg), + l oss of sensation (r. thigh to r. calf (pt can feel r. foot and toes)) and + numbness; no headache(s) Physical Exam Physical Exam: Normocephalic, atraumatic Constitutional: WD/WN, vitals as above Respiratory: normal respiratory effort, lungs clear to auscultation Cardiovascular: RRR, no murmur, no edema Vessels: posterior tibial pulses present, dorsalis pedis pulses present (post tib, dorsalis pedis, and popliteal pulses intact b/l) and popliteal pulses present Chest (Breasts): Chest: normal inspection of chest Additional Comments: no musculoskeletal chest pain Gastrointestinal (Abdomen): normal bowel sounds, soft, nontender, no hepatosplenomegaly Musculoskeletal: Hip: + effusion (swelling of r. hip) Neurologic: normal touch/pain/proprioception, + focal motor deficit (inability to move r. hip) and awake; not confused Motor/Sensory: no sensory deficit (light touch, pain intact bilaterally in legs) Psychiatric: A+Ox3, euthymic affect Results & Data Results & Data Vital Signs (Past 12 Hours) Vital Signs Temp Pulse Resp BP Pulse Ox O2 Del Method 11/20/23 19:42 36.8 C 80 20 155/77 H 98 Room Air Laboratory Results Lab Results 11/20/23 11/20/23 11/20/23 Range/Units 20:50 22:15 Unknown WBC 8.77 (4.8-10.8) K/ul RBC 3.99 L (4.20-5.40) M/uL Hgb 11.4 L (12.0-16.0) g/dl Hct 33.9 L (37.0-47.0) % MCV 85.0 (80.0-100.0) fL MCH 28.6 (25.0-34.0) pg MCHC 33.6 (32.0-36.0) g/dL RDW Std Deviation 44.3 (36.4-46.3) fL RDW Coeff of Faby 14.3 (11.5-14.5) % Plt Count 266 (130-400) K/uL MPV 10.2 (9.4-12.4) fL Immature Gran % (Auto) 0.3 % Neut % (Auto) 63.8 % Lymph % (Auto) 26.3 % [place] % (Auto) 8.0 % Eos % (Auto) 1.3 % Baso % (Auto) 0.3 % Neut # (Auto) 5.59 (1.40-6.50) K/uL Lymph # (Auto) 2.31 (1.20-3.40) K/uL [place] # (Auto) 0.70 H (0.11-0.59) K/uL Eos # (Auto) 0.11 (0.00-0.50) K/uL Baso # (Auto) 0.03 (0.00-0.20) K/uL Immature Gran # (Auto) 0.03 (0.01-0.20) K/uL PT 10.5 (9.0-12.0) Seconds INR 1.0 (0.9-1.1) APTT 24 (21-31) Seconds PTT Ratio 0.9 Sodium 136 (136-145) mmol/L Potassium 3.5 (3.5-5.1) mmol/L Chloride 106 (98-107) mmol/L Carbon Dioxide 22 (21-32) mmol/L Anion Gap 8 (3-11) BUN 15 (6-23) mg/dl Creatinine 0.88 (0.6-1.2) mg/dl Est Cr Clr Drug Dosing 45.6 ml/min Est GFR ( Amer) 79.4 ml/min Est GFR (Non-Af Amer) 68.5 ml/min BUN/Creatinine Ratio 17.0 (10-20) Glucose 116 H (70-99(Fasting)) mg/dl Calcium 9.2 (8.6-10.3) mg/dl Total Bilirubin 0.6 (0.2-1.0) mg/dl AST 27 (13-39) U/L ALT 16 (7-52) U/L Alkaline Phosphatase 96 (34-104) U/L Total Protein 7.4 (6.0-8.3) gm/dl Albumin 4.1 (3.4-5.0) gm/dl Globulin 3.3 (2.5-4.0) gm/dl Albumin/Globulin Ratio 1.2 (0.9-2) Urine Color Yellow Urine Appearance Cloudy A (Clear) Urine pH 8.0 H (4.5-7.5) Ur Specific Peculiar 1.017 (1.000-1.030) Urine Protein Negative (Negative) Urine Glucose (UA) Negative (Negative) Urine Ketones Trace H (Negative) Urine Blood 1+ H (Negative) Urine Nitrite Negative (Negative) Urine Bilirubin Negative (Negative) Urine Urobilinogen Negative (Negative) Ur Leukocyte Esterase Negative (Negative) Urine WBC (Auto) 0-5 (0-5) /hpf Urine RBC (Auto) 11-20 H (0-2) /hpf U Hyaline Cast (Auto) 0-2 (0-2) /lpf U Epithel Cells (Auto) 0-2 (0-2) /hpf Urine Bacteria (Auto) None Seen (None Seen) SARS-CoV-2 (PCR) NEGATIVE (Negative) Diagnostic Findings Pelvis X-Ray 11/20/23 19:49 SINGLE VIEW PELVIS; 2 VIEWS RIGHT HIP CLINICAL HISTORY: Fall. Right leg injury. FINDINGS: An AP view of the pelvis with AP and crosstable lateral views of the right hip are correlated with pelvic CT dated 10/25/2020. The skeletal structures are osteopenic. There is an angulated and comminuted fracture of the intertrochanteric/subtrochanteric right femur. Overlying soft tissue edema is noted. There are medially displaced fragments of the lesser trochanter. No additional acute fracture is seen involving the left hip or the bony pelvis. There is cortical thickening and lucency involving the lateral cortex of the proximal right femoral shaft, likely representing a stress reaction/developing insufficiency fracture. Moderate arthritic change and joint space narrowing is seen in the hips. The sacroiliac joints appear maintained. IMPRESSION: 1. Acute angulated fracture of the intertrochanteric/subtrochanteric right proximal femur as above. 2. No additional acute fracture seen involving the left hip or the bony pelvis. 3. Suspect stress reaction/developing insufficiency fracture of the proximal right femoral shaft. This does not appear to be acute. Electronically signed by: Miguel Herrera M.D. 11/20/2023 9:25 PM Femur X-Ray 11/20/23 21:06 RIGHT FEMUR 2 VIEWS CLINICAL HISTORY: Fall. Right leg injury. FINDINGS: AP and crosstable lateral views of the right femur are correlated with radiographs of the right hip performed earlier the same day 11/20/2023. The skeletal structures are osteopenic. There is an angulated and comminuted fracture of the intertrochanteric/subtrochanteric right femur. Overlying soft tissue edema is noted. There are medially displaced fragments of the lesser trochanter. The visualized right hemipelvis appears intact. There is cortical thickening and lucency involving the lateral cortex of the proximal right femoral shaft, likely representing a stress reaction/developing insufficiency fracture. Mild arthritic change and joint space narrowing is seen in the right hip. The right knee joint is grossly maintained. The right sacral iliac joint appears normal. IMPRESSION: 1. Acute angulated fracture of the intertrochanteric/subtrochanteric right proximal femur as above. 2. Stress reaction/developing insufficiency fracture of the proximal right femoral shaft. This does not appear to be acute. Electronically signed by: Miguel Herrera M.D. 11/20/2023 9:30 PM ECG Additional Comments: EKG with NSR at 76bpm, normal axis, KD=902, QRS=80, YBg=683, no acute ischemic changes Supervising Physician Co-Signing Physician Notes Patient seen and examined, chart reviewed, case discussed with Dr. Zavala and I agree with the assessment and plan as above. In brief, patient is a 68yo female presenting after a ground level fall in the home resulting in acute angulated fracture of the intertrochanteric/subtrochanteric right proximal femur. Concern for stress reaction/developing insufficiency fracture of the proximal right femoral shaft which vega snot appear to be acute. Pain is well controlled at present with patient laying supine and leg still. No additional complaints On exam she is resting comfortably, HD stable Skin -no rash or bruising HEENT - MMM, neck supple Heart - +S1/S2, regular, no m/r/g Lungs - CTA anteriorly, no rales/rhonchi/wheezes Abd - soft, NT/ND Ext - NV intact Labs and images reviewed Assessment/Plan Per RCRI criteria patient is low risk. No active cardiovascular or pulmonary disease. DM controlled on oral agents. She may proceed to surgery with no additional workup Pain control with morphine PRN Bowel regimen Remainder of plan as above (1) Closed fracture of right hip requiring operative repair Encounter type: initial encounter Qualified Code(s): S72.001A - Fracture of unspecified part of neck of right femur, initial encounter for closed fracture (3) Fall Encounter type: initial encounter Qualified Code(s): W19.XXXA - Unspecified fall, initial encounter (4) Osteoporosis Osteoporosis type: age-related Presence of current pathological fracture: without current pathological fracture Qualified Code(s): M81.0 - Age-related osteoporosis without current pathological fracture (5) Hypertension Hypertension type: primary hypertension Qualified Code(s): I10 - Essential (primary) hypertension
--- NOTE | 2023-11-21 00:16 | Billing Data ---
Date of Service November 20, 2023 Coding Level of Care Code 80500 INT INP/OBS CARE
[2023-11-21] MEDS ORDERED: GLUCAGON FOR INJ 1 MG VIAL SQ PRN (01:14)
[2023-11-21] MEDS ORDERED: GLUCOSE 10 TAB/TUBE PO PRN (01:14)
[2023-11-21] MEDS ORDERED: DEXTROSE 50% 50 ML SYRINGE IV PRN (01:14)
[2023-11-21] MEDS ORDERED: POLYETHYLENE (MIRALAX) 17 GM PACK PO PRN (01:14)
[2023-11-21] MEDS ORDERED: MoRPHine SULFATE 4 MG/ML 1 ML CARP\\VIAL IV PRN (01:14)
[2023-11-21] MEDS ORDERED: CARBOHYDRATES FOR HYPOGLYCEMIA PO PRN (01:14)
[2023-11-21] MEDS ORDERED: GLUCOSE 40% GEL 15 GM TUBE PO PRN (01:14)
[2023-11-21] MEDS: MoRPHine SULFATE 2 MG/ML CARP IV PRN (02:34)
[2023-11-21 05:07] LABS: Basophils # (auto) 0.01 K/uL (0.00-0.20); Basophils % (auto) 0.1 %; Hemoglobin 11.6 g/dl (12.0-16.0); Immature Granulocytes # (auto) 0.03 K/uL (0.01-0.20); Immature Granulocytes % (auto) 0.4 %; Lymphocytes # (auto) 1.18 K/uL (1.20-3.40); Lymphocytes % (auto) 15.5 %; Mean Corpuscular Hemoglobin 28.6 pg (25.0-34.0); Mean Corpuscular Hgb Conc 33.1 g/dL (32.0-36.0); Mean Corpuscular Volume 86.2 fL (80.0-100.0); Mean Platelet Volume 10.2 fL (9.4-12.4); Monocytes # (auto) 0.71 K/uL (0.11-0.59); Monocytes % (auto) 9.3 %; Neutrophils # (auto) 5.69 K/uL (1.40-6.50); Neutrophils % (auto) 74.7 %; Platelet Count 278 K/uL (130-400); RDW Coefficient of Variation 14.3 % (11.5-14.5); RDW Standard Deviation 44.8 fL (36.4-46.3); Red Blood Count 4.06 M/uL (4.20-5.40); White Blood Count 7.62 K/ul (4.8-10.8)
[2023-11-21] MEDS: INSULIN ASPART PER UNIT CHARGE SC SCH ×2 (06:32→17:36)
--- NOTE | 2023-11-21 06:34 | XRay Report ---
SINGLE VIEW CHEST CLINICAL HISTORY: Fall. FINDINGS: An AP, portable, supine chest radiograph is compared to study dated 03/26/2021. The examina tion is degraded by portable technique and apical lordotic positioning. The heart is not enlarged. At herosclerotic calcification of the thoracic aorta. The pulmonary vasculature is noncongested. Chronic interstitial thickening is similar to previous. No airspace consolidation or large pleural effusion is identified. No pneumothorax is seen. The skeletal structures are osteopenic. There are chronic/hea led right posterior rib fractures. IMPRESSION: Cardiomegaly with no acute cardiopulmonary abnormality identified. ACT 112: Negative or not required by law. Electronically signed by: Miguel Herrera M.D. 11/21/2023 6:32 AM
--- NOTE | 2023-11-21 07:13 | Orthopedic Consultation ---
Date of Service November 21, 2023 Assessment & Plan (1) Closed fracture of right hip requiring operative repair: I discussed the diagnosis and treatment options with her at bedside. I am recommending intramedullary nail fixation of the right hip. She understands the risk, benefits, alternatives to procedure elected proceed. Questions were answered and consents were signed. Time was spent scribing the procedure and postop expectations. Decision was made for surgery. She is currently NPO. We will fix her hip later this morning. History of Present Illness Reason for Consultation: Right intertrochanteric hip fracture. Requesting Physician: . Attending Physician: Maria Isabel Singer MD Noemi is a pleasant 68-year-old female who lives in a house with her . She is a community ambulator without assistance. She was going to reach for ceiling fan yesterday when she slipped on a plate for her cat food. She fell onto her right hip. She had severe right hip pain. She came to the emergency room where radiographs demonstrated a displaced intertrochanteric right hip fracture. She was admitted to the hospitalist service. Orthopedics was consulted to evaluate and treat.. Allergies Allergy/AdvReac Type Severity Reaction Status Date / Time lisinopril AdvReac Intermediate Cough Verified 11/20/23 21:00 Home Medications Medication Instructions Recorded Confirmed Type ascorbic acid (vitamin C) 500 mg 500 mg PO QAM 01/04/19 11/20/23 History chewable tablet cholecalciferol (vitamin D3) 25 1,000 units PO QAM 01/04/19 11/20/23 History mcg (1,000 unit) capsule blood sugar diagnostic (OneTouch #300 ea 02/22/19 11/05/23 Rx Ultra Blue Test Strip) lancets 33 gauge (OneTouch Delica #300 ea 02/22/19 11/05/23 Rx Lancets) omega-3 fatty acids 500 mg capsule 500 mg PO QAM 04/08/21 11/20/23 History meclizine 25 mg tablet 25 mg PO BID PRN dizziness #20 tabs 07/11/22 11/20/23 Rx losartan 50 mg tablet 50 mg PO DAILY #30 tabs 03/30/23 11/20/23 Rx rosuvastatin 10 mg tablet 10 mg PO DAILY #90 tabs 04/09/23 11/20/23 Rx escitalopram oxalate 10 mg tablet 10 mg PO QAM #90 tabs 06/19/23 11/20/23 Rx denosumab 60 mg/mL subcutaneous 60 mg subcut .COMPLEX #1 mL 11/02/23 11/20/23 Rx syringe (Prolia) metformin 500 mg tablet,extended 500 mg PO QDL #90 tabs 11/03/23 11/20/23 Rx release 24 hr bzswsbcswynl-Yn-oqev-minerals 27 1 tab PO DAILY 11/20/23 11/20/23 History mg-0.4 mg tablet trazodone 50 mg tablet 25 mg PO HS PRN insomnia 11/20/23 11/20/23 History Past Med/Surg History Problem List Fall (Acute) Closed fracture of right hip requiring operative repair (Acute) Exposure to influenza Enlarged lymph nodes in armpit Pain in right axilla Stricture of sigmoid colon Diverticulosis Anemia Insomnia (Chronic) Neuropathic pain of both legs (Chronic) Type 2 diabetes mellitus (Chronic) Osteoporosis (Chronic) Hypertension (Chronic) Anxiety (Chronic) Vertigo (Acute) Dyslipidemia (Chronic) Acid reflux (Acute) Change in bowel habits Chronic diarrhea Medical History Osteoporosis Belching GERD (gastroesophageal reflux disease) DM type 2 (diabetes mellitus, type 2) Anxiety Glaucoma HLD (hyperlipidemia) HTN (hypertension) Dog bite Fatty infiltration of liver Surgical History History of esophagogastroduodenoscopy (EGD) History of colonoscopy History of tubal ligation Family History Sister Cardiac disorder Kidney stones Breast cancer Hx of CABG Sister Diabetes Myocardial infarction Mother Myocardial infarction Father Myocardial infarction Other Coronary heart disease Family history non-contributory No family history of adverse response to anesthesia Denies family history of Ovarian cancer Prostate cancer Colorectal cancer Social History Smoking Status: Former smoker Second Hand Exposure: No; Do You Dip or Chew Tobacco: No; Hx Alcohol Use: No Hx Substance Use: No Preferred Language: Divehi Communication Ability: Effective Hearing Ability: Hard of Hearing Monument Installer Required: No Beliefs That Will Affect Care: Rastafarian Rastafarian Beliefs: patient would like a manager nuclear to visit while hospitalized marital status: Current Living Situation: Spouse current occupational status: employed current occupation: self employeed How many Children do You have: 3 Other Information That Helps Us Care for You: No Feels Safe at Home: Yes Safety Concerns: Feels Safe At This Time Childhood Exposure to Second-Hand Smoke: No Diet: regular caffeine: Yes during the past year weight has: remained stable Dental Care, Regularly: No Physical Activity Frequency: Daily Seatbelt Use: always Sunscreen Use: Yes Assistive Devices: None Review of Systems All systems reviewed & are unremarkable except as noted in HPI & below. Physical Exam On physical examination of the right hip, her leg is shortened and externally rotated. She has pain with logroll. There are no abrasions, lesions, or lacerations of her skin.. Constitutional WD/WN, vitals as above Eyes PERRL, conjunctivae normal, anicteric sclerae ENMT external ear and nose normal, oropharynx normal Neck trachea midline, no thyromegaly Respiratory normal respiratory effort Cardiovascular RRR, no murmur, no edema Gastrointestinal (Abdomen) normal bowel sounds, soft, nontender, no hepatosplenomegaly Psychiatric A+Ox3, euthymic affect Results & Data Results & Data Laboratory Results . Diagnostic Findings X-rays of the right hip do show a displaced right intertrochanteric hip fracture with a little bit of subtrochanteric extension. There is also evidence of a possible stress fracture in the shaft of the femur.. PG Care Time/CCT Total # of Minutes Spent Total Time Spent with Patient: Total time spent is greater than 50% in coordination of care (as documented) at patient's floor/unit and/or counseling patient: Coding Level of Care Code 14313 IN/OBS CONSULT LVL 4,60M (57 - DECISION FOR SURGERY) Diagnoses Closed fracture of right hip requiring operative repair S72.001A Encounter type: initial encounter (1) Closed fracture of right hip requiring operative repair Encounter type: initial encounter Qualified Code(s): S72.001A - Fracture of unspecified part of neck of right femur, initial encounter for closed fracture
--- NOTE | 2023-11-21 07:28 | Anesthesiology Consultation ---
Date of Service November 21, 2023 Assessment & Plan Chart Review Chart Review: clerk entry level initiated History Surgery Operation Date: 11/21/23 08:00 Proposed Procedures p Intramedullary Quang Femur - Nathanael Mackey DO Height/Weight Height: 4 ft 8 in Weight: 56.9 kg Allergies Allergy/AdvReac Type Severity Reaction Status Date / Time lisinopril AdvReac Intermediate Cough Verified 11/20/23 21:00 Medications Home Medications Medication Instructions Recorded Confirmed Last Taken ascorbic acid (vitamin C) 500 mg 500 mg PO QAM 01/04/19 11/20/23 11/20/23 chewable tablet cholecalciferol (vitamin D3) 25 1,000 units PO QAM 01/04/19 11/20/23 11/20/23 mcg (1,000 unit) capsule blood sugar diagnostic (SnapverseTouch #300 ea 02/22/19 11/05/23 Unknown Ultra Blue Test Strip) lancets 33 gauge (SnapverseTouch Delica #300 ea 02/22/19 11/05/23 Unknown Lancets) omega-3 fatty acids 500 mg capsule 500 mg PO QAM 04/08/21 11/20/23 11/20/23 meclizine 25 mg tablet 25 mg PO BID PRN dizziness #20 tabs 07/11/22 11/20/23 Unknown losartan 50 mg tablet 50 mg PO DAILY #30 tabs 03/30/23 11/20/23 11/20/23 rosuvastatin 10 mg tablet 10 mg PO DAILY #90 tabs 04/09/23 11/20/23 11/20/23 escitalopram oxalate 10 mg tablet 10 mg PO QAM #90 tabs 06/19/23 11/20/23 11/20/23 denosumab 60 mg/mL subcutaneous 60 mg subcut .COMPLEX #1 mL 11/02/23 11/20/23 Unknown syringe (Prolia) metformin 500 mg tablet,extended 500 mg PO QDL #90 tabs 11/03/23 11/20/23 11/20/23 release 24 hr ruplpizkzwle-Ai-uazy-minerals 27 1 tab PO DAILY 11/20/23 11/20/23 11/20/23 mg-0.4 mg tablet trazodone 50 mg tablet 25 mg PO HS PRN insomnia 11/20/23 11/20/23 Unknown Active Medications Generic Name Dose Route Start Last Admin Trade Name Freq PRN Reason Stop Dose Admin Insulin Aspart 0 units 11/21/23 06:00 11/21/23 06:32 Insulin Aspart Per Unit Charge SC 12/21/23 05:59 Not Given Q6 PALMER Morphine Sulfate 2 mg 11/21/23 01:14 11/21/23 02:34 Morphine Sulfate 2 Mg/Ml Carp IV 12/05/23 01:13 2 mg Q3H PRN Administration Pain (1,2,3,4,5) & Pre PT Past Medical History Medical History Osteoporosis Belching GERD (gastroesophageal reflux disease) DM type 2 (diabetes mellitus, type 2) Anxiety Glaucoma HLD (hyperlipidemia) HTN (hypertension) Dog bite Fatty infiltration of liver Past Family History Family History Sister Cardiac disorder Kidney stones Breast cancer Hx of CABG Sister Diabetes Myocardial infarction Mother Myocardial infarction Father Myocardial infarction Other Coronary heart disease Family history non-contributory No family history of adverse response to anesthesia Denies family history of Ovarian cancer Prostate cancer Colorectal cancer Past Surgical History Surgical History History of esophagogastroduodenoscopy (EGD) History of colonoscopy History of tubal ligation Social History Smoking Status: Former smoker Do You Dip or Chew Tobacco: No Hx Alcohol Use: No Hx Substance Use: No substance use type: does not use Physical Exam Vital Signs Last Vital Signs Temp 98.4 F 11/20/23 23:57 Pulse 83 11/21/23 07:13 Resp 20 11/21/23 07:13 BP 134/66 11/21/23 07:13 Pulse Ox 97 11/21/23 07:13 O2 Del Method Room Air 11/21/23 07:13 Testing Laboratory Results 11/21/23 04:24 11/20/23 Unknown PT 10.5 Seconds (9.0-12.0) 11/20/23 Unknown INR 1.0 (0.9-1.1) 11/20/23 Unknown APTT 24 Seconds (21-31) 11/20/23 Unknown Urine Color Yellow 11/20/23 20:50 Urine Appearance Cloudy (Clear) A 11/20/23 20:50 Urine pH 8.0 (4.5-7.5) H 11/20/23 20:50 Ur Specific [place] 1.017 (1.000-1.030) 11/20/23 20:50 Urine Protein Negative (Negative) 11/20/23 20:50 Urine Glucose (UA) Negative (Negative) 11/20/23 20:50 Urine Ketones Trace (Negative) H 11/20/23 20:50 Urine Nitrite Negative (Negative) 11/20/23 20:50 Ur Leukocyte Esterase Negative (Negative) 11/20/23 20:50 Urine WBC (Auto) 0-5 /hpf (0-5) 11/20/23 20:50 Urine RBC (Auto) 11-20 /hpf (0-2) H 11/20/23 20:50 U Hyaline Cast (Auto) 0-2 /lpf (0-2) 11/20/23 20:50 U Epithel Cells (Auto) 0-2 /hpf (0-2) 11/20/23 20:50 Urine Bacteria (Auto) None Seen (None Seen) 11/20/23 20:50 11/21/23 06:29 POC Glucose 166 H Electrocardiogram Date: 11/20/23 Findings: + NSR @ (76 bpm) Chest X-Ray Date: 11/20/23 IMPRESSION: Cardiomegaly with no acute cardiopulmonary abnormality identified.
[2023-11-21] MEDS: ESCITALOPRAM OXALATE 10 MG TAB PO SCH (08:01)
[2023-11-21] MEDS: ROSUVASTATIN CALCIUM 10 MG TAB PO SCH (08:01)
[2023-11-21] MEDS ORDERED: fentaNYL citrate PF 100 MCG/2 ML VIAL ONE (08:21)
[2023-11-21] MEDS ORDERED: DEXAMETHASONE SOD INJ 4 MG/ML VIAL ONE (08:21)
[2023-11-21] MEDS ORDERED: LIDOCAINE 2% 2 ML VIAL/AMP(20MG/ML) INFIL ONE (08:21)
[2023-11-21] MEDS ORDERED: ROCURONIUM BROMIDE 10 MG/ML 5 ML VIAL IV ONE (08:21)
[2023-11-21] MEDS ORDERED: ONDANSETRON INJ 2 MG/ML 2 ML VIAL ONE (08:21)
[2023-11-21] MEDS ORDERED: PROPOFOL IV EMULSION 10 MG/ML 20 ML VIAL IV ONE (08:21)
[2023-11-21] MEDS ORDERED: MIDAZOLAM HCL 1 MG/ML 2ML VIAL ONE (08:21)
[2023-11-21] MEDS ORDERED: ACETAMINOPHEN 1000 MG/100 ML IV IV ONE (08:35)
[2023-11-21] MEDS ORDERED: ATROPINE SULFATE 0.1 MG/ML 10ML SYR IV PRN (08:36)
[2023-11-21] MEDS ORDERED: ePHEDrine sulfate 50 MG/ML AMP IV PRN (08:36)
[2023-11-21] MEDS ORDERED: ceFAZolin 330 MG/ML 1 GM VIAL ONE (09:20)
[2023-11-21] MEDS ORDERED: PHENYLEPHRINE HCL 10 MG/ML VIAL ONE (09:31)
[2023-11-21] MEDS ORDERED: SODIUM CHLORIDE 0.9% PF INJ 10 ML VIAL ONE (09:31)
[2023-11-21] MEDS: BUPIVACAINE/EPINEPHRINE 0.25% 1:200,000 30 ML VIAL ONE (10:10)
--- NOTE | 2023-11-21 10:21 | Operative Report ---
PG Post Operative Report Pre & Post Diagnosis Operation Date: 11/21/23 08:00 Pre-Op Diagnosis: Displaced right intertrochanteric hip fracture Post-Op Diagnosis: Displaced right intertrochanteric hip fracture I identified the patient and participated in the time-out.: Yes Procedure Operation Date: 11/21/23 08:00 Actual Procedures p Intramedullary nail fixation femur, Right(Right) - Nathanael Mackey DO Surgeon Nathanael Mackey DO Playground Director Nathanael Marrero PA-C Estimated Blood Loss 50 Findings Consistent with Post-Op Diagnosis Specimens None Description of Procedure On November Noemi was brought from the emergency room to the preoperative holding area. The operative extremity identified and signed. She was given a preoperative antibiotic. She was taken back the operative room and placed under general anesthesia on the hospital bed. She was then transferred to the fracture table. The right leg was brought out to traction. Fluoroscopic images were used to ensure anatomic reduction of the right hip fracture. The right hip was then prepped and draped sterile fashion. A timeout was done. The patient and the operative extremity was properly identified. A longitudinal incision was made just superior to the greater trochanter. Dissection was taken down through the fascia. A guidepin was placed at the tip of the greater trochanter and advanced into the femoral canal. Appropriate placement was checked on orthogonal fluoroscopic images. A 17 mm opening reamer was then used to open up the intramedullary canal. A guidewire was then passed down the femur to the knee. The intramedullary deandre measured to be 340 mm in length. Sequential reaming of the femoral canal up to a size 11.5 reamer was done. A 10 mm x 340 mm Synthes intramedullary nail was then impacted into place. A small lateral incision was made and a cannula was advanced to the lateral cortex for placement of the helical blade. A guidepin was then placed into the center center position of the femoral head. The lateral cortex was drilled. A 80 mm helical blade was then impacted into place. The helical blade was then statically locked. The outrigger was removed. Final fluoroscopic images of the hip showed acceptable alignment. 2 distal locking screws were then placed using perfect [place] technique. Final x-rays were taken. The wounds were then irrigated. The deep fascia was closed with #1 Vicryl. The deep fat layer was closed with 2-0 Vicryl. Skin was closed with 2-0 Vicryl and sadi. She was then placed in soft dressings. She was then extubated and transferred back to the hospital bed. She was taken to the postanesthesia care unit in stable condition. She tolerated the procedure well. Nathanael Marrero PA-C, was present for the entire procedure. He was critical for patient positioning, prepping, draping, retraction exposure, wound closure and application of sterile dressing. I attest to the content of the Intraoperative Record and any orders documented therein. Any exceptions are noted below.
--- NOTE | 2023-11-21 10:25 | Hospitalist Progress Note ---
Date of Service November 21, 2023 Assessment & Plan (1) Closed fracture of right hip requiring operative repair: (2) Insomnia: (3) Fall: (4) Osteoporosis: (5) Hypertension: (6) Anxiety: (7) Dyslipidemia: Plan Patient is a 68 yo F w/ a PMHx of T2DM, diabetic neuropathy, HTN, HLD, ost eoporosis, anxiety, insomnia, Hx of diverticulosis, acid reflux, chronic diarrhea, who presented to the [facility] ED after slipping on the lid of a cat food can and subsequently falling on her right hip 1) Right hip fracture - Pelvis X-ray and Right femur X-ray done, confirmed hip fracture - Plan id for ORIF today -Pain control with Tylenol, morphine 2) HTN - hold losartan until post-surgery 3) HLD - continue rosuvastatin, hold omega-3 fatty acids 4) Insomnia/ Anxiety - continue trazodone, continue escitalopram 5) T2DM/ Diabetic neuropathy - SSI, CF, 50 Code status: Full code Disposition: Med-Surg Tele DVT Prophylaxis: SCDs (consider changing after surgery) FENGI: NPO before surgery Admission and Anticipated Discharge Date Admission Date: November 20, 2023 Subjective Patient seen and examined emergency department, still having a lot of pain but plan is for OR this morning Review of Systems Review of Systems: All systems reviewed are negative, apart from the ones contained in the history. Physical Exam Physical Exam: The patient is awake, alert and oriented 3, well developed and well nourished, normocephalic and atraumatic, lying in bed and in no acute distress. HEENT--PERRL, EOMI, mucous membranes and oropharynx mildly dry Neck--supple. No JVD. No bruits. Thyroid normal, trachea midline, no adenopathy. Heart--normal S1 and S2. No murmurs, rubs or gallops. Lungs--clear bilaterally, no respiratory distress, no accessory muscle use. Abdomen--normal bowel sounds and soft. Extremities--no cyanosis or clubbing. No edema.Right lower extremity movement limited by pain Dermatologic--normal skin turgor, normal color, no abnormal lymph nodes, no rash. Neurologic--cranial nerves II through XII grossly intact. Rheumatologic--normal range of motion. Psychiatric--normal affect. Results & Data Results & Data Vital Signs (Past 12 Hours) Vital Signs Temp Pulse Pulse Pulse Resp BP BP 11/21/23 07:13 83 20 134/66 11/21/23 04:00 85 18 145/74 H 11/21/23 03:08 83 11/21/23 03:02 11/21/23 03:00 81 20 123/74 11/21/23 00:57 79 15 133/74 11/21/23 00:30 85 15 135/80 11/21/23 00:21 80 17 140/76 11/21/23 00:04 81 11/20/23 23:57 98.4 F 75 18 133/70 11/20/23 23:30 78 18 129/73 11/20/23 22:59 74 18 99/76 L Pulse Ox Pulse Ox O2 Del Method O2 Del Method 11/21/23 07:13 97 Room Air 11/21/23 04:00 95 Room Air 11/21/23 03:08 11/21/23 03:02 93 Room Air 11/21/23 03:00 94 Room Air 11/21/23 00:57 94 Room Air 11/21/23 00:30 95 Room Air 11/21/23 00:21 95 Room Air 11/21/23 00:04 11/20/23 23:57 96 Room Air 11/20/23 23:30 95 Room Air 11/20/23 22:59 91 PG Care Time/CCT Total # of Minutes Spent Total Time Spent with Patient: Total time spent is greater than 50% in coordination of care (as documented) at patient's floor/unit and/or counseling patient: Coding Level of Care Code 15670 SUB INP/OBS CARE 2/35MIN Diagnoses Closed fracture of right hip requiring operative repair S72.001A Encounter type: initial encounter Insomnia G47.00 Fall W19.XXXA Encounter type: initial encounter Age-related osteoporosis without current pathological fracture M81.0 Osteoporosis type: age-related Presence of current pathological fracture: without current pathological fracture Primary hypertension I10 Hypertension type: primary hypertension Anxiety F41.9 Dyslipidemia E78.5 Time Spent (min) 35 (1) Closed fracture of right hip requiring operative repair Encounter type: initial encounter Qualified Code(s): S72.001A - Fracture of unspecified part of neck of right femur, initial encounter for closed fracture (3) Fall Encounter type: initial encounter Qualified Code(s): W19.XXXA - Unspecified fall, initial encounter (4) Osteoporosis Osteoporosis type: age-related Presence of current pathological fracture: without current pathological fracture Qualified Code(s): M81.0 - Age-related osteoporosis without current pathological fracture (5) Hypertension Hypertension type: primary hypertension Qualified Code(s): I10 - Essential (primary) hypertension
[2023-11-21] MEDS: fentaNYL citrate PF 100 MCG/2 ML VIAL IV PRN (11:04)
--- NOTE | 2023-11-21 11:11 | Anesthesiology Progress Note ---
Date of Service November 21, 2023 Anesthesia Post Procedure Vital Signs Vital Signs: Temp Pulse Pulse Pulse Resp BP BP 11/21/23 11:00 76 15 146/69 H 11/21/23 10:50 75 20 152/80 H 11/21/23 10:40 83 18 154/68 H 11/21/23 10:31 99.0 F 88 17 173/79 H 11/21/23 07:13 83 20 11/21/23 04:00 85 18 11/21/23 03:08 83 11/21/23 03:02 11/21/23 03:00 81 20 11/21/23 00:57 79 15 133/74 11/21/23 00:30 85 15 135/80 11/21/23 00:21 80 17 140/76 11/21/23 00:04 81 11/20/23 23:57 98.4 F 75 18 11/20/23 23:30 78 18 11/20/23 22:59 74 18 11/20/23 19:42 98.2 F 80 20 155/77 H BP Pulse Ox Pulse Ox O2 Del Method O2 Del Method O2 Flow Rate 11/21/23 11:00 95 Room Air 11/21/23 10:50 100 Oxymask 2 11/21/23 10:40 100 Oxymask 6 11/21/23 10:31 100 Oxymask 6 11/21/23 07:13 134/66 97 Room Air 11/21/23 04:00 145/74 H 95 Room Air 11/21/23 03:08 11/21/23 03:02 93 Room Air 11/21/23 03:00 123/74 94 Room Air 11/21/23 00:57 94 Room Air 11/21/23 00:30 95 Room Air 11/21/23 00:21 95 Room Air 11/21/23 00:04 11/20/23 23:57 133/70 96 Room Air 11/20/23 23:30 129/73 95 Room Air 11/20/23 22:59 99/76 L 91 11/20/23 19:42 98 Room Air Pain Intensity Right Hip: Pain Intensity: 8 Transfer of Care Handoff Completed per policy Notes Mental Status: alert / awake / arousable and participated in evaluation Patient Amnestic to Procedure: Yes Nausea / Vomiting: adequately controlled Pain: adequately controlled Airway Patency, RR, SpO2: stable & adequate BP & HR: stable & adequate Hydration State: stable & adequate Anesthetic Complications: no major complications apparent and Pt Satisfied with anesthetic care
--- NOTE | 2023-11-21 11:51 | Electrocardiogram Report ---
Test Reason : Blood Pressure : / mmHG Vent. Rate : 076 BPM Atrial Rate : 076 BPM P-R Int : 142 ms QRS Dur : 080 ms QT Int : 432 ms P-R-T Axes : 063 059 048 degrees QTc Int : 486 ms Normal sinus rhythm Normal ECG When compared with ECG of 24-JUN-2014 17:15, No significant change was found Confirmed by Juan Miguel Sainz ([id number]) on 11/21/2023 11:51:11 AM Referred By: REFERRED SELF Confirmed By:Juan Miguel Sainz
--- NOTE | 2023-11-21 13:03 | XRay Report ---
RIGHT FEMUR 2 VIEWS CLINICAL HISTORY: Postoperative examination. FINDINGS: AP and crosstable lateral views of the right femur are compared to study dated 11/20/2023. T he skeletal structures are osteopenic. There has been intertrochanteric and intramedullary nail fixat ion of an oblique intertrochanteric/subtrochanteric fracture of the right proximal femur. Near anatom ic alignment is restored with mild persistent offset of the largest fragments by up to 7 mm. There is medial displacement of the lesser trochanter. Stress reaction/insufficiency fracture is again seen i nvolving the medial cortex of the proximal femoral shaft. The distal femur is intact. 2 cortical lag screw transfix the distal end of the intramedullary nail. Arthritic change and chondrocalcinosis is s een in the right knee. Mild arthritic change is noted in the right hip. Skin clips, soft tissue edema , and subcutaneous gas overlying the surgical sites represents expected postoperative change. IMPRESSION: 1. Expected postoperative findings status post intertrochanteric and intramedullary nail fixation of a proximal femoral fracture. Near anatomic alignment is restored. 2. A stress fracture involving the medial cortex of the right proximal femoral shaft is again noted. Electronically signed by: Miguel Herrera M.D. 11/21/2023 1:00 PM
--- NOTE | 2023-11-21 13:39 | Fluoroscopy Report ---
INTRAOPERATIVE RADIOGRAPHS CLINICAL HISTORY: Open reduction and internal fixation of the right femur. Fluoro time: 96 seconds Ka,r: 13.50 mGy FINDINGS: 4 spot fluoroscopic views of the right femur are correlated with radiographs dated 4. There has been intertrochanteric and intramedullary nail fixation of a comminuted intertrochanteri c/subtrochanteric fracture of the right proximal femur. Near-anatomic alignment is restored. 2 cortic al lag screws transfix the distal end of the intramedullary nail. The orthopedic hardware appears int act. Overlying soft tissue edema is observed. IMPRESSION: Intraoperative images from open open reduction and internal fixation of a right femoral f racture as above. Electronically signed by: Miguel Herrera M.D. 11/21/2023 1:38 PM
[2023-11-21] MEDS ORDERED: Nursing to Pharmacy Communication SCH (13:45)
[2023-11-21] MEDS: ONDANSETRON INJ 2 MG/ML 2 ML VIAL IV PRN (14:03)
[2023-11-21] MEDS: ceFAZolin 2000MG 2,000 MG/15 ML SYR IV SCH (17:36)
[2023-11-21] MEDS: ACETAMINOPHEN 325 MG TAB PO PRN (17:38)
[2023-11-22] MEDS: traZODone HCL 50 MG TAB PO PRN (00:29)
[2023-11-22 08:03] LABS: Hematocrit (blood only) 30.6 % (37.0-47.0); Mean Corpuscular Hemoglobin 28.7 pg (25.0-34.0); Mean Corpuscular Hgb Conc 32.7 g/dL (32.0-36.0); Mean Corpuscular Volume 87.9 fL (80.0-100.0); Mean Platelet Volume 9.2 fL (9.4-12.4); Platelet Count 271 K/uL (130-400); RDW Coefficient of Variation 14.9 % (11.5-14.5); RDW Standard Deviation 47.7 fL (36.4-46.3); Red Blood Count 3.48 M/uL (4.20-5.40); White Blood Count 5.37 K/ul (4.8-10.8)
[2023-11-22 08:18] LABS: BUN Creatinine Ratio 17.5 (10-20); Calcium 7.9 mg/dl (8.6-10.3); Creatinine Clr Calc Pharmacy 48.6 ml/min; Est GFR (Non-African American) 76.8 ml/min; Potassium 4.1 mmol/L (3.5-5.1)
--- NOTE | 2023-11-22 08:39 | Orthopedic Progress Note ---
Date of Service November 22, 2023 Assessment & Plan (1) Closed fracture of right hip requiring operative repair: Overall she is doing well. She is not having much pain in the right hip. She will be seen by physical therapy today for ambulation and range of motion exercises. She is on Eliquis 2.5 mg twice a day for DVT prophylaxis. She is orthopedically stable for discharge, likely to a rehab facility, when medically ready. Full orthopedic discharge instructions were placed in the discharge summary. She will follow-up with orthopedics in 2 weeks. Michaela Franklin was seen and examined at bedside this morning. Overall she is doing fairly well. She not having too much pain in the right hip. She been up and ambulating to the bathroom. She has no complaints.. Review of Systems All systems reviewed & are unremarkable except as noted in HPI & below. Physical Exam On physical examination of the right hip, the dressings are clean and dry. Her leg is out full extension. She has active dorsiflexion plantarflexion of her right ankle.. Results & Data Results & Data Laboratory Results . Diagnostic Findings . PG Care Time/CCT Total # of Minutes Spent Total Time Spent with Patient: Total time spent is greater than 50% in coordination of care (as documented) at patient's floor/unit and/or counseling patient: Coding Level of Care Code 24953 Post Operative Follow-Up Diagnoses Closed fracture of right hip requiring operative repair S72.001A Encounter type: initial encounter (1) Closed fracture of right hip requiring operative repair Encounter type: initial encounter Qualified Code(s): S72.001A - Fracture of unspecified part of neck of right femur, initial encounter for closed fracture
[2023-11-22] MEDS: APIXABAN 2.5 MG TAB PO SCH (09:30)
--- NOTE | 2023-11-22 11:22 | Hospitalist Progress Note ---
Date of Service November 22, 2023 Assessment & Plan (1) Closed fracture of right hip requiring operative repair: (2) Insomnia: (3) Fall: (4) Osteoporosis: (5) Hypertension: (6) Anxiety: (7) Dyslipidemia: Plan Patient is a 68 yo F w/ a PMHx of T2DM, diabetic neuropathy, HTN, HLD, ost eoporosis, anxiety, insomnia, Hx of diverticulosis, acid reflux, chronic diarrhea, who presented to the [facility] ED after slipping on the lid of a cat food can and subsequently falling on her right hip 1) Right hip fracture - Pelvis X-ray and Right femur X-ray done, confirmed hip fracture - Patient is day 1 status post right hip ORIF -Pain control with Tylenol, morphine -Continue physical therapy 2) HTN - Resume losartan Continue to monitor blood pressure 3) HLD - continue rosuvastatin, hold omega-3 fatty acids 4) Insomnia/ Anxiety - continue trazodone, continue escitalopram 5) T2DM/ Diabetic neuropathy - SSI, CF, 50 Code status: Full code Disposition: Med-Surg Tele DVT Prophylaxis: SCDs , Apixaban FENGI:Regular diet Patient will need rehab Admission and Anticipated Discharge Date Admission Date: November 20, 2023 Subjective Patient seen and examined , Sitting up in the chair, participating in physical therapy denies any pain. Review of Systems Review of Systems: All systems reviewed are negative, apart from the ones contained in the history. Physical Exam Physical Exam: The patient is awake, alert and oriented 3, well developed and well nourished, normocephalic and atraumatic, lying in bed and in no acute distress. HEENT--PERRL, EOMI, mucous membranes and oropharynx mildly dry Neck--supple. No JVD. No bruits. Thyroid normal, trachea midline, no adenopathy. Heart--normal S1 and S2. No murmurs, rubs or gallops. Lungs--clear bilaterally, no respiratory distress, no accessory muscle use. Abdomen--normal bowel sounds and soft. Extremities--no cyanosis or clubbing. No edema. Dermatologic--normal skin turgor, normal color, no abnormal lymph nodes, no rash. Neurologic--cranial nerves II through XII grossly intact. Rheumatologic--normal range of motion. Psychiatric--normal affect. Results & Data Results & Data Vital Signs (Past 12 Hours) Vital Signs Temp Pulse Resp BP BP Pulse Ox O2 Del Method 11/22/23 07:58 99.3 F 83 18 162/70 H 95 Room Air 11/22/23 03:07 99.3 F 90 16 134/76 96 Room Air PG Care Time/CCT Total # of Minutes Spent Total Time Spent with Patient: Total time spent is greater than 50% in coordination of care (as documented) at patient's floor/unit and/or counseling patient: Coding Level of Care Code 79001 SUB INP/OBS CARE 2/35MIN Diagnoses Closed fracture of right hip requiring operative repair S72.001A Encounter type: initial encounter Insomnia G47.00 Fall W19.XXXA Encounter type: initial encounter Age-related osteoporosis without current pathological fracture M81.0 Osteoporosis type: age-related Presence of current pathological fracture: without current pathological fracture Primary hypertension I10 Hypertension type: primary hypertension Anxiety F41.9 Dyslipidemia E78.5 Time Spent (min) 35 (1) Closed fracture of right hip requiring operative repair Encounter type: initial encounter Qualified Code(s): S72.001A - Fracture of unspecified part of neck of right femur, initial encounter for closed fracture (3) Fall Encounter type: initial encounter Qualified Code(s): W19.XXXA - Unspecified fall, initial encounter (4) Osteoporosis Osteoporosis type: age-related Presence of current pathological fracture: without current pathological fracture Qualified Code(s): M81.0 - Age-related osteoporosis without current pathological fracture (5) Hypertension Hypertension type: primary hypertension Qualified Code(s): I10 - Essential (primary) hypertension
[2023-11-22] MEDS: LOSARTAN POTASSIUM 50 MG TAB PO SCH (12:44)
[2023-11-22] MEDS: CEROVITE ADV FORMULA TAB PO SCH (12:44)
[2023-11-22] MEDS: ASCORBIC ACID 500 MG TAB PO SCH (12:45)
[2023-11-22] MEDS: CHOLECALCIFEROL 25 MCG (1000 UNITS) TAB PO SCH (12:45)
[2023-11-23 07:50] LABS: Hematocrit (blood only) 28.7 % (37.0-47.0); Hemoglobin 9.5 g/dl (12.0-16.0); Mean Corpuscular Hemoglobin 28.8 pg (25.0-34.0); Mean Corpuscular Hgb Conc 33.1 g/dL (32.0-36.0); Mean Platelet Volume 9.4 fL (9.4-12.4); Platelet Count 312 K/uL (130-400); RDW Coefficient of Variation 14.7 % (11.5-14.5); RDW Standard Deviation 47.2 fL (36.4-46.3); White Blood Count 5.92 K/ul (4.8-10.8)
[2023-11-23 08:03] LABS: Calcium 8.3 mg/dl (8.6-10.3); Creatinine Clr Calc Pharmacy 53.3 ml/min; Est GFR (African American) 99.5 ml/min; Est GFR (Non-African American) 85.8 ml/min; Potassium 3.7 mmol/L (3.5-5.1)
--- NOTE | 2023-11-23 08:29 | Orthopedic Progress Note ---
Date of Service November 23, 2023 Assessment & Plan (1) Closed fracture of right hip requiring operative repair: Overall she is doing very well. She is not having much pain in the right hip. She did not participate well with physical therapy doing ambulation and range of motion exercises. She is on Eliquis for DVT prophylaxis. She is orthopedically stable for discharge when medically ready. She will follow-up with orthopedics in 2 weeks. Michaela Franklin was seen and examined at bedside this morning. Overall she doing well. She is not having much pain in the right hip. She has been participating well with physical therapy. She has no complaints.. Review of Systems All systems reviewed & are unremarkable except as noted in HPI & below. Physical Exam On physical examination of the right hip, the dressing is clean and dry. Her leg is out full extension. She has active dorsiflexion plantarflexion of her right ankle. Results & Data Results & Data Laboratory Results . Diagnostic Findings . PG Care Time/CCT Total # of Minutes Spent Total Time Spent with Patient: Total time spent is greater than 50% in coordination of care (as documented) at patient's floor/unit and/or counseling patient: Coding Level of Care Code 23494 Post Operative Follow-Up Diagnoses Closed fracture of right hip requiring operative repair S72.001A Encounter type: initial encounter (1) Closed fracture of right hip requiring operative repair Encounter type: initial encounter Qualified Code(s): S72.001A - Fracture of unspecified part of neck of right femur, initial encounter for closed fracture
[2023-11-23] MEDS: ONDANSETRON INJ 2 MG/ML 2 ML VIAL IV STA (11:26)
--- NOTE | 2023-11-23 11:53 | Discharge Summary ---
Date of Service November 23, 2023 Admission HPI Per Admitting Provider Patient is a 68 yo F w/ a PMHx of T2DM, diabetic neuropathy, HTN, osteopenia who presented to the [facility] ED after slipping on the lid of a cat food can and subsequently falling on her right hip around 5:30 pm this evening. Patient denies hitting her head during the fall or hitting another part of her body. Patient also denies any pain of her body besides the r. thigh/hip area which is only a 1/10 pain. Patient is unable to move her right leg with the exception of wiggling her r. foot and toes. Patient has not been incontinent since the fall and is able to feel sensation in her perineal area. Principal Diagnosis Right hip fracture Discharge Exam The patient is awake, alert and oriented 3, well developed and well nourished, normocephalic and atraumatic, lying in bed and in no acute distress. HEENT--PERRL, EOMI, mucous membranes and oropharynx mildly dry Neck--supple. No JVD. No bruits. Thyroid normal, trachea midline, no adenopathy. Heart--normal S1 and S2. No murmurs, rubs or gallops. Lungs--clear bilaterally, no respiratory distress, no accessory muscle use. Abdomen--normal bowel sounds and soft. Extremities--no cyanosis or clubbing. No edema. Dermatologic--normal skin turgor, normal color, no abnormal lymph nodes, no rash. Neurologic--cranial nerves II through XII grossly intact. Rheumatologic--normal range of motion. Psychiatric--normal affect. Discharge Data Allergies Allergy/AdvReac Type Severity Reaction Status Date / Time lisinopril AdvReac Intermediate Cough Verified 11/20/23 21:00 Consultations 11/20/23 22:08 ED Decision to Admit Stat Procedures Performed Operation Date: 11/21/23 08:00 Actual Procedures p Intramedullary Quang Femur, Right(Right) - Nathanael Mackey DO Ordered Studies 11/21/23 08:30 FL hip RT 2-3V Routine Hospital Course (1) Closed fracture of right hip requiring operative repair: (2) Insomnia: (3) Fall: (4) Osteoporosis: (5) Hypertension: (6) Anxiety: (7) Dyslipidemia: Plan Patient is a 68 yo F w/ a PMHx of T2DM, diabetic neuropathy, HTN, HLD, osteoporosis, anxiety, insomnia, Hx of diverticulosis, acid reflux, chronic diarrhea, who presented to the [facility] ED after slipping on the lid of a cat food can and subsequently falling on her right hip 1) Right hip fracture - Pelvis X-ray and Right femur X-ray done, confirmed hip fracture - Patient is day 2 status post right hip ORIF -Pain control with Tylenol, morphine -Continue physical therapy -Discharge home with home health and home physical therapy 2) HTN - Resume losartan Continue to monitor blood pressure 3) HLD - continue rosuvastatin, hold omega-3 fatty acids 4) Insomnia/ Anxiety - continue trazodone, continue escitalopram 5) T2DM/ Diabetic neuropathy - SSI, CF, 50 Code status: Full code Disposition: Med-Surg Tele DVT Prophylaxis: SCDs , Apixaban FENGI:Regular diet Discharge home with home health and home PT Total Time Total Time Spent Total Time Spent (In Minutes): 35 Discharge Plan Discharge Items Patient Disposition: Home - Home Health Services Reason For Visit: RIGHT HIP FRACTURE Discharge Diagnosis: Right hip fracture Activity: Per Instructions section Activity Comment: Weightbearing as tolerated Non-emergency contact: Primary Care Provider Call non-emergency contact if: you have any medication questions Follow-up/Referrals: Abby Jasso CRNP [Primary Care Provider] - 12/01/23 10:30 am Nathanael Mackey DO [Physician] - 12/08/23 1:30 pm Diet: Regular Addtl Attending Provider Instructions: Please make arrangement to follow-up with orthopedic surgeon Kyleigh Tax Director Provider Instructions: ORTHOPEDIC INSTRUCTIONS Hip Fracture Activity and Therapy Recommendations: 1. You were shown a series of exercises in the hospital. Do these exercises three times each day if you are able. 2. Get up and walk several times each day if you are capable. Make sure you have assistance is needed. For the first four weeks, try not to stand or walk f or more than one hour at a time. If you do stand or walk for more than one hour, you will not hurt anything, but your leg will likely swell. 3. As you feel comfortable, you may change from the walker or crutches to a cane and then to independent walking if you are able. Please be safe. Medications: 1. Narcotic You will likely be sent from the hospital with the narcotic pain medication that worked best throughout your stay. 2. Eliquis -take Eliquis 2.5 mg twice a day for 6 weeks. 3. Other medications may be given for specific circumstances. If you have any questions, please call the office at [phone]. 4. Resume previous home medications unless otherwise instructed TEDs/Elastic Stockings: The white elastic stockings help limit swelling and prevent blood clots from forming in your legs. The more you wear them, the more they work. Wear them for six weeks. Dressing Care: [place] can be open to air as long as the incisions are not draining. If the incisions are draining or if the sadi are getting caught on your clothes then please cover the sdai with dry gauze. Change the dressings as necessary to keep the incision as dry as possible Showering: You may shower 5 days from the day of surgery as long as the incisions are not draining. Do not soak the incision. Let soapy water run over the sadi and pat them dry. Things To Watch For: 1. Drainage from the incision site that occurs more than one week after your surgery. 2. Increased redness at the incision site. 3. Fever above 102 degrees Fahrenheit. 4. Unusual chest pain or shortness of breath. 5. Call [facility] at with any of the above problems Follow-Up Visit: Follow-up with Dr. Mackey's PA (Nathanael Marrero) 2-3 weeks after your day of surgery. He will remove your sadi and answer any questions. If you have any additional questions or concerns, Dr Mackey is usually in the office at the same time and will be available Please call the office to set up an appointment for a time that works for you. Pending Studies at Discharge: No Stand-Alone Forms: [facility] [place], Smoking Cessation Medications and DC Order Prescriptions: New Eliquis 2.5 mg Tablet 2.5 mg PO BID 30 Days Qty: 60 0RF Continued (DME) OneTouch Ultra Blue Test Strip strip See Dose Instructions .ROUTE .MEDSUPPLY Qty: 300 1RF Dose Instruction: As directed Rx Instructions: TEST 3 TIMES PER DAY (DME) lancets [OneTouch Delica Lancets] 33 gauge misc See Dose Instructions .ROUTE .MEDSUPPLY Qty: 300 1RF Dose Instruction: As directed Rx Instructions: TESTING 3 TIMES PER DAY losartan 50 mg tablet 50 mg PO DAILY Qty: 30 8RF rosuvastatin 10 mg tablet 10 mg PO DAILY Qty: 90 3RF escitalopram oxalate 10 mg tablet 10 mg PO QAM Qty: 90 3RF Rx Instructions: Per pharmacy, insurance requires 90 day supplies Prolia 60 mg/mL syringe 60 mg subcut .COMPLEX Qty: 1 1RF Rx Instructions: 60 mg subcutaneously every 6 mo; D/C fosamax metformin 500 mg tablet extended release 24 hr 500 mg PO QDL Qty: 90 3RF ascorbic acid (vitamin C) 500 mg tablet,chewable 500 mg PO QAM cholecalciferol (vitamin D3) 1,000 unit capsule 1,000 units PO QAM meclizine 25 mg tablet 25 mg PO BID PRN (Reason: dizziness) Qty: 20 0RF omega-3 fatty acids 500 mg Capsule 500 mg PO QAM dmmsyhbcdexl-Jl-kdah-minerals 27-0.4 mg Tablet 1 tab PO DAILY trazodone 50 mg tablet 25 mg PO HS PRN (Reason: insomnia) Discharge Orders: Discharge Order (Routine); Ordered 11/23/23 Ordered By: Maria Isabel Mo/Other Patient Handouts: Hip Fx Surg Dc, Femur Fx ORIF Admission Data Admit Date/Time: 11/20/23 23:23 Attending Provider: Maria Isabel Singer Admit Provider: Esvin Zavala Primary Care Provider: Abby Jasso Other Providers: Kate Houser Other Interventions: Discharge Summary Assessment (RN) Last Done: 11/23/23 11:36 Coding Level of Care Code 18505 INP/OBS DISCH >30 MIN Diagnoses Closed fracture of right hip requiring operative repair S72.001A Encounter type: initial encounter Insomnia G47.00 Fall W19.XXXA Encounter type: initial encounter Age-related osteoporosis without current pathological fracture M81.0 Osteoporosis type: age-related Presence of current pathological fracture: without current pathological fracture Primary hypertension I10 Hypertension type: primary hypertension Anxiety F41.9 Dyslipidemia E78.5 Time Spent (min) 35
== END 2023-11-23 14:25 | disposition home health service (06) | DRG 482 ==
LOC: ED 19:35 → SUATTDRO 23:23 → EDINP 23:23 → 3E 11-21 12:38